=== PATIENT | male | born 1970 | race Caucasian/White ===

== ENCOUNTER → 2018-06-06 10:12 | Outpatient (CLI) | payer BC, SELFPAY ==
--- NOTE | 2018-06-06 10:41 | CA_ITS ---
PROCEDURE: 2-D M-mode and color Doppler study INDICATIONS FOR THE TEST: Chest pain COPD Heart MurmurX Tobacco Smoking Palpitations Fatigue Syncope EdemaX HypertensionXDiabetes Mellitus Rheumatic Fever SOB ERAZO ObesityXHyperlipidemia Family History HD Additional History PATIENT INFORMATION HEIGHT:66 WEIGHT:250 GENDER: Male B/P:120/89 2-D/M-MODE INTERPRETATION: 2-D MEASUREMENTS OBSERVED VALUES IN CMS Right Ventricular Dimension (RVDd) 3.2 Interventricular Septum (Thickness)(IVsd) 1.2 Left Ventricular Internal Dimensions(LVIDd) 5.0 Left Ventricular Posterior Wall (Thickness)(LVPWd) 1.1 Aortic Root 4.0 Aortic Cusp Separation 2.1 Left Atrial Dimensions (LAD) 2.6 2D 1. Left atrium is qualitatively mildly enlarged, left ventricle is normal size, mild concentric left ventricular hypertrophy, visually estimated ejection fraction 55% with no obvious regional wall motion abnormality. 2. The right atrium and right ventricle are normal size and contractility. 3. The aortic valve is thickened and calcified leaflet continue to display mobility. 4. The mitral and tricuspid valve are grossly normal. 5. The pulmonic valve is poorly visualized. 6. No significant pericardial effusion noted. DOPPLER INTERROGATION: Doppler interrogation of the aortic, mitral and tricuspid valvular presence of trace aortic, mild mitral and tricuspid regurgitation, tricuspid and jet velocity is insufficient for calculation of the right ventricular systolic pressure, diastolic parameters are inconclusive. CONCLUSION: 1. Mildly enlarged left atrium, normal left ventricular size, mild concentric left ventricular hypertrophy, visually estimated ejection fraction 55% with no obvious regional wall motion abnormality, diastolic parameters are inconclusive. 2. Mild mitral and tricuspid regurgitation 3. No significant pericardial effusion noted.
== END ==
PROVIDERS: Family Provider Family Medicine; PCP Family Medicine; Visit Provider Family Medicine
DX: R01.2 Other cardiac sounds (principal); R60.0 Localized edema
CPT/HCPCS: 93306

== ENCOUNTER 2018-11-03 20:07 | Observation (INO) ==
[2018-11-03 20:28] LABS: Basophils % 0.3 % (0.1-2.0); Eosinophils # 0.4 K/mm3 (0.0-0.4); Hematocrit 49.2 % (42.0-52.0); Hemoglobin 16.4 g/dL (14.1-18.0); Lymphocytes % 7.3 % (10-50); Mean Corpuscular HGB Conc 33.3 g/dL (31.8-35.4); Mean Corpuscular Hemoglobin 29.7 pg (27.0-31.2); Mean Corpuscular Volume 89.3 fl (80-94); Mean Platelet Volume 7.7 fl (7.4-10.4); Monocytes # 0.5 K/mm3 (0.1-1.0); Monocytes % 3.8 % (1.7-9.3); Neutrophils # 11.7 K/mm3 (1.8-7.8); Neutrophils % 85.6 % (37.0-80.0); Platelet Count 214 K/mm3 (142-424); Red Blood Count 5.51 M/mm3 (4.60-6.20); Red Cell Distribution Width 13.9 % (11.5-17.5); White Blood Count 13.6 K/mm3 (4.8-10.8)
--- NOTE | 2018-11-03 20:33 | Emergency Department Note ---
ED Disposition Clinical Impression: Syncope Qualifiers: Syncope type: unspecified Qualified Code(s): R55 - Syncope and collapse Disposition: Admitted as Observation Condition on Discharge: Good - Critical Care Critical Care Time: No Attestation: On , the high probability of a clinically significant, sudden or life threatening deterioration of the following system(s) required my full and direct attention, intervention and personal management. The time I documented below is in addition to time spent performing reported procedures but includes the following listed in this critical care notation. Medical Decision Making - Medical Records Medical records reviewed: Yes: I reviewed the patient's medical records. - Chadd Inquiry Pt receiving controlled substance: No Vital Signs: 11/03/18 20:08 11/03/18 20:57 11/03/18 21:38 Temperature 98.7 F 99.6 F Temperature Source Oral Oral Pulse Rate [Right Brachial] 85 87 89 Respiratory Rate 17 16 15 Blood Pressure [Right Arm] 133/67 150/94 H 156/71 H Blood Pressure Mean [Right Arm] 89 112 99 Blood Pressure Source [Right Arm] Automatic Cuff Blood Pressure Position [Right Arm] Supine 02 Sat by Pulse Oximetry 96 97 100 Oxygen Delivery Method Room Air 11/03/18 22:30 11/03/18 22:46 Temperature 98.9 F Temperature Source Oral Pulse Rate [Right Brachial] 98 H 104 H Respiratory Rate 18 15 Blood Pressure [Right Arm] 126/75 130/96 H Blood Pressure Mean [Right Arm] 92 107 Blood Pressure Source [Right Arm] Automatic Cuff Blood Pressure Position [Right Arm] Supine 02 Sat by Pulse Oximetry 97 97 Oxygen Delivery Method Room Air Room Air - Lab Data Lab results reviewed: Yes: I reviewed the patient's lab results. Lab Results 11/03/18 20:19: WBC 13.6 H, RBC 5.51, Hgb 16.4, Hct 49.2, MCV 89.3, MCH 29.7, MCHC 33.3, RDW 13.9, Plt Count 214, MPV 7.7, Neut % (Auto) 85.6 H, Lymph % (Auto) 7.3 L, [place] % (Auto) 3.8, Eos % (Auto) 3.0, Baso % (Auto) 0.3, Neut # (Auto) 11.7 H, Lymph # (Auto) 1.0, [place] # (Auto) 0.5, Eos # (Auto) 0.4, Baso # (Auto) 0.0, Total Counted 100, Neutrophils % (Manual) 82 H, Band Neutrophils % 1.0, Lymphocytes % (Manual) 7 L, Monocytes % (Manual) 7, Eosinophils % (Manual) 2, Basophils % (Manual) 1.0, Platelet Estimate Normal, RBC Morphology Normal 11/03/18 20:19: Sodium 137, Potassium 3.8, Chloride 102, Carbon Dioxide 25, Anion Gap 13.8, BUN 16, Creatinine 0.98, Estimated Creat Clear 143, Estimated GFR 81, Est GFR ( Amer) 98, Glucose 160 H, Calcium 8.2 L, Troponin I < 0.02, TSH 1.28, Thyroxine (T4) 7.6 11/03/18 20:19: Influenza Type A Ag Negative, Influenza Type B Ag Negative 11/03/18 21:45: Lactate 1.1 11/03/18 22:00: Urine Color Yellow, Urine Appearance Clear, Urine pH 6.0, Ur Specific [place] 1.020, Urine Protein 1+, Urine Glucose (UA) Negative, Urine K etones Negative, Urine Blood Negative, Urine Nitrate Negative, Urine Bilirubin Negative, Urine Urobilinogen 0.2, Ur Leukocyte Esterase Negative, Urine WBC 3-5, Ur Squamous Epith Cells Occasional, Urine Bacteria Trace Result diagrams: 11/03/18 20:19 11/03/18 20:19 Orders (Tests/Meds): ED MEDICATIONS Generic Name Dose Route Start Last Admin Trade Name Freq PRN Reason Stop Dose Admin Sodium Chloride 1,000 mls @ 999 mls/hr 11/03/18 20:15 11/03/18 20:56 Sod Chlor 0.9% 1000ml Bag IV 11/03/18 21:15 999 mls/hr .Q1H1M OJ Administration Sodium Chloride 1,000 mls @ 999 mls/hr 11/03/18 22:00 11/03/18 21:52 Sod Chlor 0.9% 1000ml Bag IV 11/03/18 23:00 999 mls/hr .Q1H1M OJ Administration Sodium Chloride 10 ml 11/03/18 20:09 Saline Flush 10ml Syringe IV 12/03/18 20:08 NEEDED PRN Maintain IV Site Discontinued Medications Generic Name Dose Route Start Last Admin Trade Name Freq PRN Reason Stop Dose Admin Acetaminophen 1,000 mg 11/03/18 21:49 11/03/18 21:51 Tylenol 500mg Tablet PO 11/03/18 21:50 1,000 mg ONCE ONE Administration Ketorolac Tromethamine 30 mg 11/03/18 21:49 11/03/18 21:51 Toradol 30mg/Ml Vial IV 11/03/18 21:50 30 mg ONCE ONE Administration Ondansetron HCl 4 mg 11/03/18 20:09 11/03/18 21:51 Zofran 4mg/2ml Vial IV 11/03/18 20:10 Not Given ONCE ONE ORDERS Category Date Time Status CT cervical spine wo con Stat Cat Scan 11/03/18 20:[address] head/brain wo con Stat Cat Scan 11/03/18 20:09 Taken XR chest AP Stat Exams 11/03/18 20:09 Taken XR pelvis 1-2V Stat Exams 11/03/18 20:09 Taken UA [Urinalysis and Microscopic] Stat Lab 11/03/18 22:00 Ordered Blood Culture Stat Micro 11/03/18 21:45 Received ECG Request by /Jerry Stat Y 11/03/18 20:09 Ordered - Radiology Data #1 Image(s): Chest, Pelvis Image Reviewed: Yes I reviewed the patient's radiology image Preliminary Findings: No Fracture Seen - CT Data CT Scan: Head, C-Spine Time Received: 22:[address] Reviewed: Yes: I have viewed the radiologist's interpretation Preliminary Findings: No Fracture Seen - ECG Data Tracing #1 Normal Sinus Rhythm: Yes Ischemic changes: non-specific ST-T wave changes - Physician Consults Physician Consulted: sound Reason -: Admission Syncope HPI - General Chief Complaint: Syncope Stated Complaint: nausea, vomiting, passed out x2 Time Seen by Provider: 11/03/18 20:15 Mode of Arrival: EMS Source of Information: Patient, EMS, Medical Record Limitations: No Limitations Description of Symptoms (Recalled from ER Triage Doc. by RN): Reports he felt nauseated at home, got up to go vomit, had a sharp pain in the lower abd, and the next thing he knew, he was getting up off the floor. Denies pain anywhere b ut does state he thinks he hit his head. EMS reported that patient had 2 syncopal episodes earlier today that they responded to in which he did pass out. - History of Present Illness HPI narrative: pt with 2 episodes of passing out tonight - he had no evid of chest pain and no palpitations MD complaint: loss of consciousness Onset (ago): hour(s) Prodromal symptoms: none Witnessed: yes - by bystander Context: at rest Treatments prior to arrival: none - Related Data Home Medications Medication Instructions Recorded Confirmed Amlodipine/Valsartan/Hcthiazid 1 each PO DAILY 09/14/18 11/03/18 [Gsdjm-Bwbct-Rkmg 5-160-12.5 mg] Metformin HCl [Glucophage Xr] 500 mg PO DAILY 09/14/18 11/03/18 Meclizine HCl [Meclizine 25mg Tab] 25 mg PO TID 11/03/18 11/03/18 Allergies Allergy/AdvReac Type Severity Reaction Status Date / Time No Known Allergies Allergy Verified 09/14/18 12:09 [facility] History - Hepatitis A Screen Drug use history?: No High risk sexual behaviors?: No History of sexually transmitted infection?: No Currently employed?: No Childcare worker?: No Do you have indoor plumbing?: Yes Do you have electricity?: Yes Attestation statement:: This patient has been screened for Hepatitis A risk factors. I have reviewed the patient's past medical history: Yes Medical History: Reports:: Diabetes Mellitus Type 1 Denies:: Cancer, Diabetes Mellitus Type 2, MRSA Amputation: No - Social History Alcohol Intake: never - Psychiatric History Expresses thoughts of harming self/others: None Suicide Plan Description: No Plan ROS Obtained: Yes All systems reviewed & no additional complaints - Constitutional Constitutional: Reports chills, Denies fever(s) - Eyes Eyes: Denies change in vision - ENT Ears, Nose, Mouth, and Throat: Denies sore throat - Cardiovascular Cardiovascular: Denies chest pain, Denies dyspnea, Denies palpitations - Respiratory Respiratory: No cough - Gastrointestinal Gastrointestingal: Denies: abdominal pain, diarrhea - Genitourinary Male Genitourinary: Denies flank pain, Denies hematuria - Musculoskeletal Musculoskeletal: Denies joint pain, Denies joint swelling - Integumentary/Breasts Skin/Breast: Denies rash - Neurologic Neurologic: Denies abnormal speech, Denies confusion, Denies headache(s), Denies seizure-like activity, Reports syncope Physical Exam - General General appearance: alert, in no apparent distress - Head Head exam: atraumatic, normocephalic - Eye Eye exam: Present: PERRL, EOMI. Absent: nystagmus - ENT ENT exam: Present: mucous membranes dry, other (no evid of tongue biting ) - Neck Neck exam: Present: trachea midline, other (no bruit) - Respiratory Respiratory exam: Present: normal lung sounds bilaterally. Absent: respiratory distress - Cardiovascular Cardiovascular exam: Present: regular rate, systolic murmur - Abdominal Exam Abdominal exam: Present: soft - Extremities Exam Extremities exam: Present: normal inspection - Neurological Exam Neurological exam: Present: alert, oriented X3, CN II-XII intact. Absent: motor sensory deficit - Psychiatric Psychiatric exam: Present: normal affect - Skin Skin exam: Absent: rash
[2018-11-03 20:47] LABS: Anion Gap 13.8 mEq/L (5-15); Blood Urea Nitrogen 16 mg/dL (7-18); Calcium 8.2 mg/dL (8.5-10.1); Carbon Dioxide 25 mmol/L (21.0-32.0); Chloride 102 mmol/L (98-107); Glucose 160 mg/dL (74-106); Potassium 3.8 mmoL/L (3.5-5.1); Sodium 137 mmol/L (136-145); T4 (Thyroxine) 7.6 ug/dl (4.7-13.3); Thyroid Stimulating Hormone 1.28 uIU/ml (0.358-3.740)
[2018-11-03 21:01] LABS: Eosinophils % 2 % (0-3); Lymphocytes % 7 % (10-50); Monocytes % 7 % (2-9); Neutrophils % 82 % (42-76); RBC Morphology Normal; Total Cells Counted 100
[2018-11-03 22:05] LABS: Microscopic, Urine URINE MICROSCOPIC (MICROSCOPIC)
[2018-11-03 22:06] LABS: Appearance,Urine CLEAR (Clear); Bilirubin,Urine Negative (Negative); Blood, Urine Negative (Negative); Color,Urine YELLOW (Yellow); Glucose,Urine (UA) Negative (Negative); Ketones,Urine Negative (Negative); Leukocyte Esterase,Urine Negative (Negative); Protein,Urine 1+ (Negative); Urobilinogen,Urine 0.2 EU/dl (0.2)
[2018-11-03 22:13] LABS: Bacteria,Urine Trace /lpf; Squamous Epithelial Cell,Urine Occasional #/hpf (0-5)
[2018-11-04 06:03] LABS: Basophils % 0.1 % (0.1-2.0); Eosinophils # 0.4 K/mm3 (0.0-0.4); Eosinophils % 3.8 % (0.1-12.0); Hematocrit 46.4 % (42.0-52.0); Lymphocytes # 1.1 K/mm3 (0.7-4.5); Lymphocytes % 12.2 % (10-50); Mean Corpuscular HGB Conc 31.5 g/dL (31.8-35.4); Mean Corpuscular Hemoglobin 28.5 pg (27.0-31.2); Mean Corpuscular Volume 90.3 fl (80-94); Mean Platelet Volume 7.8 fl (7.4-10.4); Monocytes # 0.5 K/mm3 (0.1-1.0); Monocytes % 4.9 % (1.7-9.3); Neutrophils # 7.3 K/mm3 (1.8-7.8); Platelet Count 195 K/mm3 (142-424); Red Blood Count 5.13 M/mm3 (4.60-6.20); Red Cell Distribution Width 13.9 % (11.5-17.5); White Blood Count 9.2 K/mm3 (4.8-10.8)
[2018-11-04 06:15] LABS: Hemoglobin 14.9 g/dL (14.1-18.0)
[2018-11-04 06:36] LABS: Calcium 7.4 mg/dL (8.5-10.1)
--- NOTE | 2018-11-04 07:35 | Pharmacy Consult Notes ---
[facility] Pharmacy VTE Monitoring - Patient Demographics Admission date: 11/03/18 Report Date: 11/04/18 Time: 07:35 Allergies/Adverse Reactions: Patient Allergies No Known Allergies Allergy (Verified 09/14/18 12:09) Height: 1.68 m Weight: 115.383 kg Patient Problems: Current Active Problems Syncope (Acute) - VTE Risk Labs: VTE Related Lab Results Hgb 14.9 g/dL (14.1-18.0) 11/04/18 05:30 Hct 46.4 % (42.0-52.0) 11/04/18 05:30 Plt Count 195 K/mm3 (142-424) 11/04/18 05:30 BUN 15 mg/dL (7-18) 11/04/18 05:30 Creatinine 0.95 mg/dL (0.70-1.30) 11/04/18 05:30 Estimated Creat Clear 154 mL/min (50-200) 11/04/18 05:30 Was VTE Risk Assessment Performed: Yes VTE Risk Level: Very Low Risk - Prophylaxis VTE Prophylaxis Ordered?: Yes Types of VTE Prophylaxis: TEDS Knee High Location of Applied Device: Bilateral Lower Extremeties - VTE Diagnosis Confirmed Treatment or plan recommended: Continue Current Treatment
--- NOTE | 2018-11-04 09:25 | History & Physical Report ---
*Admission Date: 11/03/18 <FordKelsi 11/04/18 09:45> *Chief complaint: Syncope <FordKelsi arboleda 11/04/18 09:45> *History of present illness: Mr. Norman is a 47-year-old male with a history of type 2 diabetes mellitus and hypertension who presented to [facility] via EMS after experiencing syncopal episodes x2. The first episode occurred after getting up from a sitting position and walking to the bathroom because he felt he might vomit. He fell to the floor hitting his arm. After vomiting he did feel better. He did continue with his work and again when sitting became dizzy and nauseated. This time he was lowered to the floor. He did not feel like he passed out. EMS was again called and he was brought to the emergency room. He denies having chest pain, shortness of breath, and palpitations. With evaluation in the emergency room he had negative imaging which included CT of head and cervical spine, chest x-ray and pelvis x-ray. He did receive IV fluid boluses, Toradol and Zofran IV. White blood cell count was elevated at 13,600; normal TSH at 1.28; troponin I's were negative x3. He was admitted for observation, cardiac monitoring and further evaluation and treatment <LoganKelsi 11/04/18 09:45> [facility] History Medical History: Reports:: Diabetes Mellitus Type 2, Hypertension Denies:: Atherosclerotic Heart Disease, Cancer, MRSA <Kelsi Ford 09:45> Have you ever received a pneumonia vaccine?: No <Kelsi Ford 11/04/18 09:45> Have you received a flu vaccine this season?: No <Kelsi Ford 11/04/18 09:45> Other Medical History: Denies: Hypothyroidism <Kelsi Ford 11/04/18 09:45> Other Surgeries: Yes: Cholecystectomy, Hernia Repair <Kelsi Ford 11/04/18 09:45> Amputation: No <Kelsi Ford 11/04/18 09:45> - *Social History Educational Level: Completed High School <Kelsi Ford 11/04/18 09:45> Smoking Status: Never smoker <Kelsi Ford 11/04/18 09:45> Alcohol Intake: never <Kelsi Ford 11/04/18 09:45> Occupational Status: employed <Kelsi Ford 11/04/18 09:45> Housing: house <Kelsi Ford 11/04/18 09:45> Travel in the last 8 weeks: None <Kelsi Ford 11/04/18 09:45> - Psychiatric History Expresses thoughts of harming self/others: None <Kelsi Ford 11/04/18 09:45> Suicide Plan Description: No Plan <Kelsi Ford 11/04/18 09:45> *Family Hx:: Coronary Artery Disease, Heart Attack <Kelsi Ford 11/04/18 09:45> Review of Systems - Constitutional Reports headache(s), Denies body ache(s), Denies weakness <LoganKelsi 11/04/18 09:45> - Eyes Denies change in vision <LoganKelsi 11/04/18 09:45> - ENT Denies ear pain, Denies sore throat <Kelsi Ford 11/04/18 09:45> - *Cardiovascular Denies chest pain, Denies shortness of breath, Denies irregular heart rhythm, Denies fast heart rate <Kelsi Ford 11/04/18 09:45> - *Respiratory Denies chest congestion, Denies cough, Denies shortness of breath, Denies coughing up blood <Kelsi Ford 11/04/18 09:45> - *Gastrointestinal Reports nausea, Reports vomiting, Denies abdominal pain, Denies change in stools, Denies constipation, Denies heartburn, Denies vomiting blood <Kelsi Ford 11/04/18 09:45> Comments: Also vomited after arrival to the emergency room <Kelsi Ford 11/04/18 09:45> - *Genitourinary Denies difficulty urinating <LoganKelsi 11/04/18 09:45> - *Musculoskeletal Denies abnormal walking, Denies muscle weakness, Denies body aches <Kelsi Ford 11/04/18 09:45> - *Neurologic Reports dizziness, Reports fainting, Reports dizziness, Denies abnormal walking, Denies abnormal speech, Denies confusion, Denies localized weakness, Denies headache(s), Denies lack of coordination, Denies seizure-like activity, Denies weakness <Kelsi Ford - 11/04/18 09:45> Meds Home Medications Medication Instructions Recorded Confirmed Type RX: Amlodipine/Valsartan/Hcthiazid 1 each PO DAILY 09/14/18 11/04/18 History [Ufbwj-Ceahd-Wutd 5-160-12.5 mg] RX: Meclizine HCl [Meclizine 25mg 25 mg PO TID 11/03/18 11/03/18 History Tab] Aspirin [Aspirin 81mg EC Tab] 81 mg PO DAILY #30 tablet. 11/04/18 Rx RX: Metformin HCl 500 mg PO DAILY 11/04/18 11/04/18 History <Igor Ramirez - 11/20/18 18:08> Allergies Allergy/AdvReac Type Severity Reaction Status Date / Time No Known Allergies Allergy Verified 09/14/18 12:09 <Igor Ramirez - 11/20/18 18:08> Exam Vital signs and Labs for Last 24 Hours: Temp Pulse Resp BP Pulse Ox 98.1 F 94 H 20 135/89 95 11/04/18 11:58 11/04/18 11:58 11/04/18 11:58 11/04/18 11:58 11/04/18 11:58 <Igor Ramirez - 11/20/18 18:08> Temp Pulse Resp BP Pulse Ox 98.1 F 71 16 135/74 96 11/04/18 08:00 11/04/18 08:00 11/04/18 08:00 11/04/18 08:00 11/04/18 08:00 Laboratory Results - last 24 hr 11/03/18 20:19: WBC 13.6 H, RBC 5.51, Hgb 16.4, Hct 49.2, MCV 89.3, MCH 29.7, MCHC 33.3, RDW 13.9, Plt Count 214, MPV 7.7, Neut % (Auto) 85.6 H, Lymph % (Auto) 7.3 L, [place] % (Auto) 3.8, Eos % (Auto) 3.0, Baso % (Auto) 0.3, Neut # (Auto) 11.7 H, Lymph # (Auto) 1.0, [place] # (Auto) 0.5, Eos # (Auto) 0.4, Baso # (Auto) 0.0, Total Counted 100, Neutrophils % (Manual) 82 H, Band Neutrophils % 1.0, Lymphocytes % (Manual) 7 L, Monocytes % (Manual) 7, Eosinophils % (Manual) 2, Basophils % (Manual) 1.0, Platelet Estimate Normal, RBC Morphology Normal 11/03/18 20:19: Sodium 137, Potassium 3.8, Chloride 102, Carbon Dioxide 25, Anion Gap 13.8, BUN 16, Creatinine 0.98, Estimated Creat Clear 143, Estimated GFR 81, Est GFR ( Amer) 98, Glucose 160 H, Calcium 8.2 L, Troponin I < 0.02, TSH 1.28, Thyroxine (T4) 7.6 11/03/18 20:19: Influenza Type A Ag Negative, Influenza Type B Ag Negative 11/03/18 21:45: Lactate 1.1 11/03/18 22:00: Urine Color Yellow, Urine Appearance Clear, Urine pH 6.0, Ur Specific [place] 1.020, Urine Protein 1+, Urine Glucose (UA) Negative, Urine Ketones Negative, Urine Blood Negative, Urine Nitrate Negative, Urine Bilirubin Negative, Urine Urobilinogen 0.2, Ur Leukocyte Esterase Negative, Urine WBC 3-5, Ur Squamous Epith Cells Occasional, Urine Bacteria Trace 11/04/18 02:00: Troponin I < 0.02 11/04/18 05:30: Troponin I < 0.02 11/04/18 05:30: WBC 9.2 D, RBC 5.13, Hgb 14.9, Hct 46.4, MCV 90.3, MCH 28.5, MC HC 31.5 L, RDW 13.9, Plt Count 195, MPV 7.8, Neut % (Auto) 79.0, Lymph % (Auto) 12.2, [place] % (Auto) 4.9, Eos % (Auto) 3.8, Baso % (Auto) 0.1, Neut # (Auto) 7.3, Lymph # (Auto) 1.1, [place] # (Auto) 0.5, Eos # (Auto) 0.4, Baso # (Auto) 0.0 11/04/18 05:30: Sodium 139, Potassium 4.0, Chloride 106, Carbon Dioxide 24, Anion Gap 13.0, BUN 15, Creatinine 0.95, Estimated Creat Clear 154, Estimated GFR 84, Est GFR ( Amer) 102, Glucose 144 H, Calcium 7.4 L 11/04/18 06:20: POC Glucose 137 H <LoganKelsi 11/04/18 09:45> I & O for Last 24 hours: Intake & Output 11/01/18 11/02/18 11/03/18 11/04/18 11:59 11:59 11:59 11:59 Intake Total 2503 / 2503 Output Total 75 / 75 Balance 2428 / 2428 Weight 254 lb 6 oz <LoganKelsi 11/04/18 09:45> Radiology Reports for the Last 24 Hours: 11/03/2018 CT of the cervical spine IMPRESSION: 1. No acute fracture. 2. Cervical spondylosis with degenerative disc disease. Please see above for detailed description 3. C3-C4: Mild degenerative disc disease with right paracentral disc osteophyte complex and mild right lateral recess and foraminal narrowing. 4. C5-C6: Degenerative disc disease with prominent central and left paracentral disc osteophyte complex with left lateral recess and foraminal narrowing and canal stenosis centrally and on the left. 11/03/2018 chest x-ray IMPRESSION: Negative chest, no acute finding 11/03/2018 CT of the head IMPRESSION: Negative CT head without contrast. No acute finding 11/03/2018 x-ray of the pelvis IMPRESSION: No acute finding <Kelsi Ford 11/04/18 09:45> - Constitutional no acute distress <Kelsi Ford 11/04/18 09:45> Comments: Has just ambulated to the bathroom without difficulties <Kelsi Ford 11/04/18 09:45> - *Routine HEENT Exam Head: Present: normocephalic, atraumatic <Kelsi Ford 11/04/18 09:45> Eye: Present: EOMI, PERRL. Absent: conjunctival icterus, scleral injection <Kelsi Sr 11/04/18 09:45> ENT: Present: mucous membranes moist, oropharynx clear <Kelsi Ford 11/04/18 09:45> - *Routine Neck Exam Present: supple, full ROM. Absent: carotid bruit, lymphadenopathy, thyromegaly <Kelsi Ford 11/04/18 09:45> - *Routine Respiratory Exam Present: CTA bilaterally (Anteriorly and posteriorly) <Kelsi Ford 11/04/18 09:45> - *Routine Cardiovascular Exam Present: RRR (Without ectopy) <[facility]andi [facility]formerly [facility] 11/04/18 09:45> - *Routine Abdominal Exam Present: soft, normoactive bowel sounds. Absent: tenderness, distended, gu arding <Randi Fordhy 11/04/18 09:45> Comments: Obese <Randi Fordhy 11/04/18 09:45> - *Routine Extremities Exam Present: pulses intact. Absent: edema, calf tenderness <Randi Fordhy 11/04/18 09:45> - *Routine Neurological Exam Present: alert, oriented X3 <Randi Fordhy 11/04/18 09:45> Assessment and Plan (1) Vertigo Status: Acute Category: Medical Code(s): R42 - Dizziness and giddiness (2) Syncope Status: Acute Qualifiers: Syncope type: unspecified Qualified Code(s): R55 - Syncope and collapse Category: Medical Code(s): R55 - Syncope and collapse (3) Type 2 diabetes mellitus Status: Chronic Category: Medical Code(s): E11.9 - Type 2 diabetes mellitus without complications (4) Dizziness Status: Acute Category: Medical Code(s): R42 - Dizziness and giddiness (5) Hypertension Status: Chronic Category: Medical Code(s): I10 - Essential (primary) hypertension (6) Hyperglycemia Status: Acute Category: Medical Code(s): R73.9 - Hyperglycemia, unspecified <Igor Ramirez 11/20/18 18:08> (1) Vertigo Status: Acute Category: Medical Code(s): R42 - Dizziness and giddiness (2) Syncope Status: Acute Qualifiers: Syncope type: unspecified Qualified Code(s): R55 - Syncope and collapse Category: Medical Code(s): R55 - Syncope and collapse (3) Type 2 diabetes mellitus Status: Chronic Category: Medical Code(s): E11.9 - Type 2 diabetes mellitus without complications (4) Dizziness Status: Acute Category: Medical Code(s): R42 - Dizziness and giddiness (5) Hypertension Status: Chronic Category: Medical Code(s): I10 - Essential (primary) hypertension (6) Hyperglycemia Status: Acute Category: Medical Code(s): R73.9 - Hyperglycemia, unspecified <Kelsi Ford - 11/04/18 09:21> - Assessment and plan all Dx Assessment and Plan for all problems:: Patient seen and examined. Concur with above assessment and plan. <Igor Ramirez - 11/20/18 18:08> Carotid ultrasound and echocardiogram. Will restart metformin. Patient has had minimal p.o. intake and will continue IV fluids at 75 an hour for now. Unable to determine urinary output if any. <Kelsi Ford - 11/04/18 09:45>
--- NOTE | 2018-11-04 11:19 | Carotid Imaging Report ---
"Cerebrovascular Exam Indications: 780.2 Syncope and collapse. IMPRESSIONS 1. The bilateral vertebral arteries are patent with normal antegrade flow. 2. Study suggests less than 20% stenosis involving the right internal carotid artery and the left internal carotid artery. Carotid duplex study. Complete study and Doppler flow study including spectral analysis, color and stratton scale imaging. Height: Height: 15.2cm. Height: 6in. Weight: Weight: 115.2kg. Weight: 253.5lb. Body mass index: BMI: 4960.6kg/m^2. Body surface area: BSA: 0.92m^2. Location: Vascular laboratory. Patient status: Inpatient. Tables: Arterial flow: + +--------+--------+ |Location |V sys |V ed | + +--------+--------+ |Right CCA - proximal|68.4cm/s|18.2cm/s| + +--------+--------+ |Right CCA - distal |59cm/s |20.4cm/s| + +--------+--------+ |Right ECA |115cm/s |--------| + +--------+--------+ |Right ICA - proximal|98.2cm/s|35.8cm/s| + +--------+--------+ |Right ICA - mid |75cm/s |38cm/s | + +--------+--------+ |Right ICA - distal |92.6cm/s|39.2cm/s| + +--------+--------+ |Right vertebral |42.4cm/s|--------| + +--------+--------+ |Left CCA - proximal |87.7cm/s|24.3cm/s| + +--------+--------+ |Left CCA - distal |99.8cm/s|29.2cm/s| + +--------+--------+ |Left ECA |132cm/s |--------| + +--------+--------+ |Left ICA - proximal |73.3cm/s|27cm/s | + +--------+--------+ |Left ICA - mid |93.7cm/s|38.6cm/s| + +--------+--------+ |Left ICA - distal |68.7cm/s|32.9cm/s| + +--------+--------+ |Left vertebral |42.5cm/s|--------| + +--------+--------+ Velocity ratios: + + + + + + | |Right, V sys|Right, V ed|Left, V sys|Left, V ed| + + + + + + |Max ICA/dist CCA|1.66 |1.92 |0.94 |1.32 | + + + + + + (Report amended ) Electronically signed by: Ishaan Braun [id number]"
--- NOTE | 2018-11-04 18:28 | Progress Note ---
Internal Medicine - PN: Subj *Date: 11/04/18 *Time: 18:26 Interval history: Patient up and about in room today with no dizziness, ataxia, pre-syncope symptoms. VS stable. Carotid doppler and echo show no actionable concerns. He requested discharge due to availability of a ride. Will discharge home with Holter and f/u in office in 2 days. Exam Vital signs and Labs for Last 24 Hours: Temp Pulse Resp BP Pulse Ox 98.1 F 94 H 20 135/89 95 11/04/18 11:58 11/04/18 11:58 11/04/18 11:58 11/04/18 11:58 11/04/18 11:58 Laboratory Results - last 24 hr 11/03/18 20:19: WBC 13.6 H, RBC 5.51, Hgb 16.4, Hct 49.2, MCV 89.3, MCH 29.7, MCHC 33.3, RDW 13.9, Plt Count 214, MPV 7.7, Neut % (Auto) 85.6 H, Lymph % (Auto) 7.3 L, Braxton % (Auto) 3.8, Eos % (Auto) 3.0, Baso % (Auto) 0.3, Neut # (Auto) 11.7 H, Lymph # (Auto) 1.0, Braxton # (Auto) 0.5, Eos # (Auto) 0.4, Baso # (Auto) 0.0, Total Counted 100, Neutrophils % (Manual) 82 H, Band Neutrophils % 1.0, Lymphocytes % (Manual) 7 L, Monocytes % (Manual) 7, Eosinophils % (Manual) 2, Basophils % (Manual) 1.0, Platelet Estimate Normal, RBC Morphology Normal 11/03/18 20:19: Sodium 137, Potassium 3.8, Chloride 102, Carbon Dioxide 25, Anion Gap 13.8, BUN 16, Creatinine 0.98, Estimated Creat Clear 143, Estimated GFR 81, Est GFR ( Amer) 98, Glucose 160 H, Calcium 8.2 L, Troponin I < 0.02, TSH 1.28, Thyroxine (T4) 7.6 11/03/18 20:19: Influenza Type A Ag Negative, Influenza Type B Ag Negative 11/03/18 21:45: Lactate 1.1 11/03/18 22:00: Urine Color Yellow, Urine Appearance Clear, Urine pH 6.0, Ur Specific Ocate 1.020, Urine Protein 1+, Urine Glucose (UA) Negative, Urine Ketones Negative, Urine Blood Negative, Urine Nitrate Negative, Urine Bilirubin Negative, Urine Urobilinogen 0.2, Ur Leukocyte Esterase Negative, Urine WBC 3-5, Ur Squamous Epith Cells Occasional, Urine Bacteria Trace 11/04/18 02:00: Troponin I < 0.02 11/04/18 05:30: Troponin I < 0.02 11/04/18 05:30: WBC 9.2 D, RBC 5.13, Hgb 14.9, Hct 46.4, MCV 90.3, MCH 28.5, MCHC 31.5 L, RDW 13.9, Plt Count 195, MPV 7.8, Neut % (Auto) 79.0, Lymph % (Auto) 12.2, Braxton % (Auto) 4.9, Eos % (Auto) 3.8, Baso % (Auto) 0.1, Neut # (Auto) 7.3, Lymph # (Auto) 1.1, Braxton # (Auto) 0.5, Eos # (Auto) 0.4, Baso # (Auto) 0.0 11/04/18 05:30: Sodium 139, Potassium 4.0, Chloride 106, Carbon Dioxide 24, Anion Gap 13.0, BUN 15, Creatinine 0.95, Estimated Creat Clear 154, Estimated GFR 84, Est GFR ( Amer) 102, Glucose 144 H, Calcium 7.4 L 11/04/18 06:20: POC Glucose 137 H 11/04/18 12:04: POC Glucose 143 H I & O for Last 24 hours: Intake & Output 11/02/18 11/03/18 11/04/18 11/05/18 11:59 11:59 11:59 11:59 Intake Total 2503 / 2503 Output Total 75 / 75 Balance 2428 / 2428 Weight 254 lb 6 oz Assessment and Plan (1) Vertigo Status: Acute Category: Medical Code(s): R42 - Dizziness and giddiness (2) Syncope Status: Acute Qualifiers: Syncope type: unspecified Qualified Code(s): R55 - Syncope and collapse Category: Medical Code(s): R55 - Syncope and collapse (3) Type 2 diabetes mellitus Status: Chronic Category: Medical Code(s): E11.9 - Type 2 diabetes mellitus without complications (4) Dizziness Status: Acute Category: Medical Code(s): R42 - Dizziness and giddiness (5) Hypertension Status: Chronic Category: Medical Code(s): I10 - Essential (primary) hypertension (6) Hyperglycemia Status: Acute Category: Medical Code(s): R73.9 - Hyperglycemia, unspecified
--- NOTE | 2018-11-05 05:43 | Cardiology Report ---
PROCEDURE: 2-D M-mode and color Doppler study INDICATIONS FOR THE TEST: Chest pain COPD Heart Murmur Tobacco Smoking Palpitations Fatigue Syncope Edema Hypertension+Diabetes Mellitus++++++ Rheumatic Fever SOB ERAZO Obesity Hyperlipidemia Family History HD Additional History PATIENT INFORMATION HEIGHT: 66 WEIGHT:254 GENDER: Male B/P:115/60 2-D/M-MODE INTERPRETATION: 2-D MEASUREMENTS OBSERVED VALUES IN CMS Right Ventricular Dimension (RVDd) 3.5 Interventricular Septum (Thickness)(IVsd) 1.4 Left Ventricular Internal Dimensions(LVIDd) 5.6 Left Ventricular Posterior Wall (Thickness)(LVPWd) 1.0 Aortic Root 3.8 Aortic Cusp Separation 2.2 Left Atrial Dimensions (LAD) 3.5 2D 1. Technically difficult study because of the patient's factor and poor acoustic windows 2. Left atrium is mildly enlarged, left ventricle is normal size, mild concentric left ventricular hypertrophy, visually estimated ejection fraction 55% no regional wall motion abnormality 3. The right atrium and right ventricle are mildly enlarged with normal contractility. 4. The aortic valve is minimally thickened and calcified leaflet continue to display good mobility. 5. The mitral and tricuspid valve leaflets are minimally thickened. 6. The pulmonic valve is poorly visualized. 7. No significant pericardial effusion noted. DOPPLER INTERROGATION: Doppler interrogation of the aortic, mitral and tricuspid valvular presence of mild aortic, mild mitral and tricuspid regurgitation, tricuspid regurgitation jet velocity is inadequate for calculation of the right ventricular systolic pressure, grade 1 diastolic dysfunction seen with tissue Doppler evidence of raised left atrial pressure. CONCLUSION: 1. Mildly enlarged left atrium, normal left ventricular size, mild concentric left ventricular hypertrophy, visually estimated ejection fraction 55% with no regional wall motion abnormality, grade 1 diastolic dysfunction seen with tissue Doppler evidence of raised left atrial pressure. 2. Mildly enlarged right ventricle with normal contractility. 3. Mild aortic, mild mitral and tricuspid regurgitation. 4. No significant pericardial effusion noted.
--- NOTE | 2018-11-06 22:00 | Discharge Summary ---
General - General Admission date:: 11/03/18 <Igor Ramirez - 11/20/18 18:09> 11/03/18 <Jody Sue - 11/06/18 22:00> Discharge date: 11/04/18 <Jody Sue - 11/06/18 22:00> HPI HPI: Mr. Trujillo is a 47-year-old male with a history of type 2 diabetes mellitus and hypertension who presented to [facility] via EMS after experiencing syncopal episodes x2. The first episode occurred after getting up from a sitting position and walking to the bathroom because he felt he might vomit. He fell to the floor hitting his arm. After vomiting he did feel mansoor r. He did continue with his work and again when sitting became dizzy and nauseated. This time he was lowered to the floor. He did not feel like he passed out. EMS was again called and he was brought to the emergency room. He denies having chest pain, shortness of breath, and palpitations. With evaluation in the emergency room he had negative imaging which included CT of head and cervical spine, chest x-ray and pelvis x-ray. He did receive IV fluid boluses, Toradol and Zofran IV. White blood cell count was elevated at 13,600; normal TSH at 1.28; troponin I's were negative x3. He was admitted for observation, cardiac monitoring and further evaluation and treatment <Jody Sue - 11/06/18 22:00> Hospital Course Hospital Course: A carotid ultrasound and echocardiogram were ordered. He was restarted on his metformin as well as IV fluids. His carotid ultrasound showed less than 20% stenosis bilaterally. His echo showed an EF of 55% with left ventricular hypertrophy. By the next day, the patient was up and about in the room with no dizziness, ataxia, or pre-syncopal episodes. The patient requested discharge due to availability of a ride. He was stable to be discharged home with a Holter and a follow-up in 2 days. <Jody Sue - 11/06/18 22:00> Objective Vital signs: Temp Pulse Resp BP Pulse Ox 98.1 F 94 H 20 135/89 95 11/04/18 11:58 11/04/18 11:58 11/04/18 11:58 11/04/18 11:58 11/04/18 11:58 <AshleyIgor Rudi - 11/20/18 18:09> Temp Pulse Resp BP Pulse Ox 98.1 F 94 H 20 135/89 95 11/04/18 11:58 11/04/18 11:58 11/04/18 11:58 11/04/18 11:58 11/04/18 11:58 <Jody Sue - 11/06/18 22:00> Narrative: - Constitutional no acute distress Comments: Has just ambulated to the bathroom without difficulties - *Routine HEENT Exam Head: Present: normocephalic, atraumatic Eye: Present: EOMI, PERRL. Absent: conjunctival icterus, scleral injection ENT: Present: mucous membranes moist, oropharynx clear - *Routine Neck Exam Present: supple, full ROM. Absent: carotid bruit, lymphadenopathy, thyromegaly - *Routine Respiratory Exam Present: CTA bilaterally (Anteriorly and posteriorly) - *Routine Cardiovascular Exam Present: RRR (Without ectopy) - *Routine Abdominal Exam Present: soft, normoactive bowel sounds. Absent: tenderness, distended, guarding Comments: Obese - *Routine Extremities Exam Present: pulses intact. Absent: edema, calf tenderness - *Routine Neurological Exam Present: alert, oriented X3 <Jody Sue - 11/06/18 22:00> Results Labs on day of discharge: Preliminary micro results at discharge 11/03/18 21:45 Blood Culture - Preliminary Blood NO GROWTH AFTER 48 HOURS 11/03/18 21:45 Blood Culture - Preliminary Blood NO GROWTH AFTER 48 HOURS <Jody Sue - 11/06/18 22:00> DS: Diagnosis - Discharge Diagnosis (1) Vertigo Status: Acute (2) Syncope Status: Acute (3) Type 2 diabetes mellitus Status: Chronic (4) Dizziness Status: Acute (5) Hypertension Status: Chronic (6) Hyperglycemia Status: Acute <Jody Sue - 11/06/18 21:55> (1) Vertigo Status: Acute (2) Syncope Status: Acute (3) Type 2 diabetes mellitus Status: Chronic (4) Dizziness Status: Acute (5) Hypertension Status: Chronic (6) Hyperglycemia Status: Acute <AshleyIgor Rudi - 11/20/18 18:09> Discharge Plan - Patient Discharge Instructions ACTIVITY: Continue current activity <Jody Sue - 11/06/18 22:00> DIET: diabetic diet, low salt diet <Jody Sue - 11/06/18 22:00> Patient Instructions: DI for Syncope in Adults (Fainting) <Igor Ramirez - 11/20/18 18:09> Forms: <Igor Ramirez - 11/20/18 18:09> - Follow up Plan Follow up with: Igor Ramirez MD [Staff Physician] - 2 days (in [facility]) <Igor Ramirez - 11/20/18 18:09> Disposition: Home, Self-Care <Igor Ramirez - 11/20/18 18:09> Home Medications: Home Medications Medication Instructions Recorded Confirmed Type RX: Amlodipine/Valsartan/Hcthiazid 1 each PO DAILY 09/14/18 11/04/18 History [Ykdzx-Qfgxn-Gufx 5-160-12.5 mg] RX: Meclizine HCl [Meclizine 25mg 25 mg PO TID 11/03/18 11/03/18 History Tab] Aspirin [Aspirin 81mg EC Tab] 81 mg PO DAILY #30 tablet. 11/04/18 Rx RX: Metformin HCl 500 mg PO DAILY 11/04/18 11/04/18 History <Igor Ramirez - 11/20/18 18:09> Prescriptions/Medication Reconciliation: New Aspirin [Aspirin 81mg EC Tab] 81 mg PO DAILY #30 tablet.dr Campo RX: Amlodipine/Valsartan/Hcthiazid [Ajdks-Grzse-Gnmb 5-160-12.5 mg] 1 each PO DAILY RX: Metformin HCl 500 mg PO DAILY RX: Meclizine HCl [Meclizine 25mg Tab] 25 mg PO TID <Igor Ramirez - 11/20/18 18:09> - Additional Information Additional Information: Concur with plan for discharge. <Igor Ramirez - 11/20/18 18:09>
== END 2018-11-04 14:04 | disposition home or self-care (01) ==
LOC: 2ND 20:07 → ER 20:07 → 2ND 23:31
PROVIDERS: ADMIT Emergency Medicine; ATTEND Family Medicine
DX: R42 Dizziness and giddiness; Z79.899 Other long term (current) drug therapy; I65.23 Occlusion and stenosis of bilateral carotid arteries; I51.7 Cardiomegaly; R55 Syncope and collapse; I10 Essential (primary) hypertension; E11.65 Type 2 diabetes mellitus with hyperglycemia
CPT/HCPCS: 36415; 70450; 71010; 71045; 72125; 72170; 80048; 81001; 82962; 83605; 84436; 84443; 84484; 85007; 85025; 87040; 87275; 87276; 93005; 93306; 93880; 96365; 96366; 96375; 99285; G0378; J2405

== ENCOUNTER → 2018-11-04 14:05 | Outpatient (CLI) | payer BC, SELFPAY | PROVIDERS: PCP Family Medicine; Visit Provider Family Medicine | DX: R42 Dizziness and giddiness (principal) ==

== ENCOUNTER 2023-01-07 23:52 | Emergency (ER) | payer BC, SELFPAY ==
[2023-01-07 23:53] VITALS: BP 194/101; PULSE 82; RESP 17; TEMP 37; O2SAT 98; BMI 37.1
[2023-01-08] VITALS (10 sets, daily range): BP systolic 173–210; BP diastolic 91–120; PULSE 75–84; RESP 16–22; TEMP 36.6; O2SAT 96–98
[2023-01-08 00:31] LABS: Basophils # 0.2 K/mm3 (0-0.2); Eosinophils # 0.8 K/mm3 (0.0-0.4); Eosinophils % 6.6 % (0.1-12.0); Hemoglobin 15.7 g/dL (14.1-18.0); Lymphocytes # 3.2 K/mm3 (0.7-4.5); Lymphocytes % 27.8 % (10-50); Mean Corpuscular HGB Conc 32.7 g/dL (31.8-35.4); Mean Corpuscular Hemoglobin 28.4 pg (27.0-31.2); Mean Corpuscular Volume 86.9 fl (80-94); Mean Platelet Volume 8.7 fl (7.4-10.4); Monocytes # 0.6 K/mm3 (0.1-1.0); Monocytes % 4.9 % (1.7-9.3); Neutrophils # 6.8 K/mm3 (1.8-7.8); Neutrophils % 58.7 % (37.0-80.0); Platelet Count 200 K/mm3 (142-424); Red Blood Count 5.52 M/mm3 (4.60-6.20); Red Cell Distribution Width 14.5 % (11.5-17.5); White Blood Count 11.5 K/mm3 (4.8-10.8)
[2023-01-08 00:35] LABS: Chloride 104 mmol/L (98-107); Sodium 138 mmol/L (136-145)
[2023-01-08 00:36] LABS: Potassium 3.7 mmoL/L (3.5-5.1)
--- NOTE | 2023-01-08 00:37 | HMH.EDEPIS ---
Discharge Plan Disposition Patient Disposition: Home, Self-Care Chief Complaint: Epistaxis Prescriptions Prescriptions: No Action tessyvtcqf-arpszawui-hlwexabpp 5-160-12.5 mg tablet 1 tab PO DAILY Qty: 90 0RF atorvastatin 20 mg tablet 20 mg PO DAILY Qty: 30 0RF metformin 1,000 mg tablet 1,000 mg PO DAILY Qty: 30 0RF meclizine 25 MG Tab.Chew 25 mg PO TID aspirin 81 MG Tablet.Dr 81 mg PO DAILY Qty: 30 0RF Referrals Follow up/Referrals: Igor Ramirez MD [Primary Care Provider] - See instructions Clinical Impressions Clinical Impression: Epistaxis, Hypertension Instructions Patient Instructions: DI for Nosebleed Discharge ED Provider: Elaina (ED),Franky Mcclain Epistaxis HPI General Chief complaint: Epistaxis Stated complaint: nose bleed Time Seen by Provider: 01/08/23 00:37 Mode of Arrival: Ambulatory Source of Information: Patient and Medical Record Limitations: No Limitations Description of Symptoms (Recalled from ER Triage Doc. by RN): pt to ED with bleeding out of his right nostril. pt reports the bleeding started this afternoon and stopped after a couple of hours but then started to bleed again around 930pm tonight. on assessment pt is found to be hypertensive and stated he stopped taking his HTN medications. pt denies any chest pain, SOB or vision changes. History of Present Illness HPI Narrative: atraumatic bleeding rt sonam CROUCH complaint: epistaxis Location: right nostril Onset (ago): hour(s) Duration: intermittent Context: hypertension Treatment prior to arrival: nose pinching and stuffed nose with tissue Related Data Home Medications Medication Instructions Recorded Confirmed meclizine 25 mg chewable tablet 25 mg PO TID dizziness 11/03/18 11/03/18 Previous Rx's Medication Instructions Recorded aspirin 81 mg tablet,delayed 81 mg PO DAILY ##30 11/04/18 release amlodipine 5 mg-valsartan 160 1 tab PO DAILY Hypertension #90 07/13/22 mg-hydrochlorothiazide 12.5 mg tabs tablet atorvastatin 20 mg tablet 20 mg PO DAILY #30 tabs 07/18/22 metformin 1,000 mg tablet 1,000 mg PO DAILY #30 tabs 07/18/22 Allergies Allergy/AdvReac Type Severity Reaction Status Date / Time No Known Allergies Allergy Verified 09/14/18 12:09 PFSH PFSH Disclaimer: The information contained in this section may have been updated after the patient was seen, as this information can be updated by other users. Social History Smoking Status: Never smoker alcohol intake: never current occupational status: employed Travel in the last 8 weeks: None housing: house caffeine: Yes ROS Obtained: Yes All systems reviewed & no additional complaints except as documented Physical Exam General General appearance: alert Head Head exam: normocephalic Eye Eye exam: Present PERRL and EOMI ENT ENT exam: Present mucous membranes moist Neck Neck exam: Present full ROM Respiratory Respiratory exam: Absent respiratory distress Cardiovascular Cardiovascular exam: Present regular rate Abdominal Exam Abdominal exam: Present soft Extremities Exam Extremities exam: Present full ROM Neurological Exam Neurological exam: Present alert, oriented X3 and CN II-XII intact; Absent motor sensory deficit Psychiatric Psychiatric exam: Present normal affect Skin Skin exam: Absent rash Medical Decision Making Medical Records Medical records reviewed: Yes I reviewed the patient's medical records. Chadd Inquiry Pt receiving controlled substance: No Vital Signs: 01/07/23 23:53 01/08/23 00:01 01/08/23 01:15 Temperature 98.6 F Temperature Source Oral Pulse Rate 81 Pulse Rate [Left Radial] 82 Respiratory Rate 17 22 Blood Pressure 194/101 H 210/120 H Blood Pressure [Right Arm] 194/101 H Blood Pressure Mean 132 Blood Pressure Mean [Right Arm] 132 Blood Pressure Source Manual Cuff/ Doppler Blood Pressure Source [Right Arm] Automatic Cuff Blood Pressure
[2023-01-08 00:38] LABS: Alanine Aminotransferase 27 U/L (12-78); Alkaline Phosphatase 111 U/L (38-126); Anion Gap 8.7 mEq/L (5-15); Aspartate Amino Transferase 27 U/L (17-59); Bilirubin,Total 0.5 mg/dl (0.2-1.3); Blood Urea Nitrogen 14 mg/dl (9-20); Carbon Dioxide 29 mmol/L (22.0-30.0); Creatinine Clearance Estimated 178 mL/min (50-200); Estimated Glomerular Filt Rate 118 ml/min (>60); GFR (African American) 142 ML/MIN (>60)
[2023-01-08 00:39] LABS: Albumin Level 4.1 g/dl (3.5-5.0); Albumin/Globulin Ratio 1.5 (1.1-1.8); Calcium 8.4 mg/dl (8.4-10.2); Globulin 2.7 g/dL (1.3-3.2); Glucose 189 mg/dl (74-100); Total Protein,Serum 6.8 g/dl (6.3-8.2)
== END 2023-01-08 02:13 | disposition home or self-care (01) ==
PROVIDERS: Emergency Provider Emergency Medicine; PCP Family Medicine
DX: R04.0 Epistaxis (principal); I10 Essential (primary) hypertension
CPT/HCPCS: 80053; 85025; 96374; 96375; 99285

== ENCOUNTER 2023-01-08 13:20 | Emergency (ER) | payer BC, SELFPAY ==
[2023-01-08 13:21] VITALS: BP 189/108; PULSE 94; RESP 17; TEMP 36.4; O2SAT 97; BMI 37.9
--- NOTE | 2023-01-08 13:32 | HMH.EDGENADL ---
Discharge Plan Disposition Patient Disposition: Home, Self-Care Prescriptions Prescriptions: New gbxavpgikw-ofvzcjukn-vmdlfqnml 5-160-12.5 mg tablet 1 tab PO DAILY 30 Days Qty: 30 3RF No Action dwladivtwj-drwqpuuca-nvpavtwfi 5-160-12.5 mg tablet 1 tab PO DAILY Qty: 90 0RF atorvastatin 20 mg tablet 20 mg PO DAILY Qty: 30 0RF metformin 1,000 mg tablet 1,000 mg PO DAILY Qty: 30 0RF meclizine 25 MG tablet,chewable 25 mg PO TID aspirin 81 MG tablet,delayed release (DR/EC) 81 mg PO DAILY Qty: 30 0RF Referrals Follow up/Referrals: Igor Ramirez MD [Primary Care Provider] - See instructions Activity Restrictions/Add. Instructions Additional Instructions/Restrictions: Please have your packing removed within 48 hours. Follow-up with primary care doctor for further management of your blood pressure. Return to the emergency department with any worsening or bleeding. Clinical Impressions Clinical Impression: Hypertension, Epistaxis Instructions Patient Instructions: DI for Nosebleed Discharge ED Provider: Zaheer Wallace General Adult HPI General Chief complaint: Epistaxis Stated complaint: nose bleeds Time Seen by Provider: 01/08/23 13:32 History of Present Illness HPI narrative: Patient is a 52-year-old male not on anticoagulation here with right anterior epistaxis. States he was in the emergency department last night the nurse here who is also historian was the [facility] nurse that took care of him yesterday evening as well. He was here late last night and a Rhino Rocket was placed in his right anterior nare and he was told by the physician last night to remove his packing this morning at 8 AM which he did. Subsequently he had ongoing bleeding. Return to the emergency department as a result of this. Of note the patient has significant hypertension and he has had some prescriptions of his amlodipine valsartan and hydrochlorothiazide combination up to several months ago however he claims that he has not been taking his medicine intentionally for the last year. Patient denies any lightheadedness or any other symptoms at the moment. Related Data Home Medications Medication Instructions Recorded Confirmed meclizine 25 mg chewable tablet 25 mg PO TID dizziness 11/03/18 11/03/18 Previous Rx's Medication Instructions Recorded aspirin 81 mg tablet,delayed 81 mg PO DAILY ##30 11/04/18 release amlodipine 5 mg-valsartan 160 1 tab PO DAILY Hypertension #90 07/13/22 mg-hydrochlorothiazide 12.5 mg tabs tablet atorvastatin 20 mg tablet 20 mg PO DAILY #30 tabs 07/18/22 metformin 1,000 mg tablet 1,000 mg PO DAILY #30 tabs 07/18/22 amlodipine 5 mg-valsartan 160 1 tab PO DAILY 30 days #30 tabs 01/08/23 mg-hydrochlorothiazide 12.5 mg tablet Allergies Allergy/AdvReac Type Severity Reaction Status Date / Time No Known Allergies Allergy Verified 09/14/18 12:09 [facility] Disclaimer: The information contained in this section may have been updated after the patient was seen, as this information can be updated by other users. Social History Smoking Status: Never smoker alcohol intake: never current occupational status: employed Travel in the last 8 weeks: None housing: house caffeine: Yes ROS Obtained: Yes All systems reviewed & no additional complaints except as documented Physical Exam General General appearance: alert ENT ENT exam: Present other (Right anterior recent bleeding hemostatic currently with evidence of anterior septal bleeding and mucosal friability) Respiratory Respiratory exam: Present normal lung sounds bilaterally Cardiovascular Cardiovascular exam: Present regular rate and normal rhythm Neurological Exam Neurological exam: Present alert; Absent oriented X3 Medical Decision Making Chadd Inquiry Pt receiving controlled substance: No Vital Signs: 01/08/23 13:21 Temperature 97.6 F Temperature Source Oral Pulse Rate
--- NOTE | 2023-01-08 13:45 | PC.NURSE ---
JEANINE CROUCH at
--- NOTE | 2023-01-08 13:46 | PC.NURSE ---
at pt bedside cauterizing right nare with silver nitrate sticks
--- NOTE | 2023-01-08 13:49 | PC.NURSE ---
inserted Rhino Rocket into right nare at this time
[2023-01-08 14:32] VITALS: BP 177/99; PULSE 86; RESP 17; O2SAT 95
--- NOTE | 2023-01-08 14:49 | PC.NURSE ---
pt has now started to bleed steady out of his left nare. MD notified and to bedside to insert rhino rocket into left nare
--- NOTE | 2023-01-08 15:10 | PC.NURSE ---
called specialty clinic who could make an appointment for pt tomorrow at 4pm
--- NOTE | 2023-01-08 15:18 | PC.NURSE ---
pt continues to bleed down the back of his throat. Dr. Wallace notified
[2023-01-08 15:23] VITALS: BP 170/101; PULSE 91; O2SAT 97
--- NOTE | 2023-01-08 15:33 | PC.NURSE ---
JEANINE CROUCH at discussing POC
--- NOTE | 2023-01-08 15:34 | PC.NURSE ---
Contacting [facility] at this time for possible patient transfer; consulting ENT.
--- NOTE | 2023-01-08 15:43 | PC.NURSE ---
pt sitting up in the chair, report is more comfortable in the position than in the bed.
[2023-01-08 15:49] LABS: Basophils # 0.2 K/mm3 (0-0.2); Basophils % 1.7 % (0.1-2.0); Eosinophils # 0.6 K/mm3 (0.0-0.4); Eosinophils % 5.4 % (0.1-12.0); Hematocrit 46.6 % (42.0-52.0); Hemoglobin 15.6 g/dL (14.1-18.0); Lymphocytes # 3.7 K/mm3 (0.7-4.5); Lymphocytes % 31.5 % (10-50); Mean Corpuscular HGB Conc 33.5 g/dL (31.8-35.4); Mean Corpuscular Hemoglobin 28.7 pg (27.0-31.2); Mean Corpuscular Volume 85.9 fl (80-94); Monocytes # 0.6 K/mm3 (0.1-1.0); Monocytes % 4.7 % (1.7-9.3); Neutrophils # 6.7 K/mm3 (1.8-7.8); Neutrophils % 56.7 % (37.0-80.0); Platelet Count 227 K/mm3 (142-424); Red Blood Count 5.43 M/mm3 (4.60-6.20); Red Cell Distribution Width 14.3 % (11.5-17.5); White Blood Count 11.7 K/mm3 (4.8-10.8)
--- NOTE | 2023-01-08 15:55 | PC.NURSE ---
on the phone with Dr. Diaz at
--- NOTE | 2023-01-08 15:58 | PC.NURSE ---
accepted to [facility] by Dr. Diaz
[2023-01-08 15:59] LABS: Chloride 101 mmol/L (98-107); Sodium 137 mmol/L (136-145)
[2023-01-08 16:00] LABS: Activated Partial Thrombo Time 25.9 seconds (22.8-30.6); INR 0.95 (0.9-1.1); Prothrombin Time 10.3 seconds (10.1-12.5)
[2023-01-08 16:02] LABS: Alanine Aminotransferase 28 U/L (12-78); Albumin Level 4.3 g/dl (3.5-5.0); Albumin/Globulin Ratio 1.4 (1.1-1.8); Alkaline Phosphatase 119 U/L (38-126); Aspartate Amino Transferase 29 U/L (17-59); Bilirubin,Total 0.6 mg/dl (0.2-1.3); Blood Urea Nitrogen 19 mg/dl (9-20); Carbon Dioxide 29 mmol/L (22.0-30.0); Creatinine Clearance Estimated 182 mL/min (50-200); Estimated Glomerular Filt Rate 118 ml/min (>60); GFR (African American) 142 ML/MIN (>60); Total Protein,Serum 7.3 g/dl (6.3-8.2)
--- NOTE | 2023-01-08 16:02 | PC.NURSE ---
notified [facility] of transport needed to ER
[2023-01-08 16:03] LABS: Calcium 8.9 mg/dl (8.4-10.2); Glucose 151 mg/dl (74-100)
--- NOTE | 2023-01-08 16:07 | PC.NURSE ---
report called to NAKUL Huffman [facility]
--- NOTE | 2023-01-08 16:19 | PC.NURSE ---
Raad Frazier. EMS here at [facility] to transfer patient
[2023-01-08 16:34] VITALS: BP 122/112; PULSE 93; RESP 17; TEMP 36.6; O2SAT 98
== END 2023-01-08 16:36 | disposition home or self-care (01) ==
PROVIDERS: Emergency Provider Student in an Organized Health Care Education/Training Program; PCP Family Medicine
DX: R04.0 Epistaxis (principal); I10 Essential (primary) hypertension
CPT/HCPCS: 30903; 80053; 85025; 85610; 85730; 96374; 99285; J2405

== ENCOUNTER → 2023-01-14 12:00 | Outpatient (CLI) | payer BC, SELFPAY ==
[2023-01-14 20:03] LABS: Creatinine,Urine Random 121 mg/dL (Not Estab.)
[2023-01-14 21:24] LABS: Microalbumin/Creatinine Ratio 38.8
== END ==
PROVIDERS: PCP Nurse Practitioner; Visit Provider Nurse Practitioner
DX: E11.9 Type 2 diabetes mellitus without complications (principal); I10 Essential (primary) hypertension; Z79.84 Long term (current) use of oral hypoglycemic drugs
CPT/HCPCS: 82043; 82570

== ENCOUNTER → 2023-01-15 21:20 | Outpatient (CLI) | payer BC, SELFPAY ==
[2023-01-15 21:52] LABS: Basophils # 0.1 K/mm3 (0-0.2); Basophils % 0.8 % (0.1-2.0); Eosinophils # 0.7 K/mm3 (0.0-0.4); Eosinophils % 5.6 % (0.1-12.0); Hematocrit 40.3 % (42.0-52.0); Hemoglobin 12.9 g/dL (14.1-18.0); Lymphocytes # 2.9 K/mm3 (0.7-4.5); Mean Corpuscular Hemoglobin 28.6 pg (27.0-31.2); Mean Corpuscular Volume 89.3 fl (80-94); Mean Platelet Volume 10.2 fl (7.4-10.4); Monocytes # 0.7 K/mm3 (0.1-1.0); Monocytes % 5.7 % (1.7-9.3); Neutrophils # 8.2 K/mm3 (1.8-7.8); Platelet Count 363 K/mm3 (142-424); Red Blood Count 4.52 M/mm3 (4.60-6.20); Red Cell Distribution Width 14.5 % (11.5-17.5); White Blood Count 12.6 K/mm3 (4.8-10.8)
[2023-01-15 22:07] LABS: Alanine Aminotransferase 22 U/L (12-78); Albumin/Globulin Ratio 1.5 (1.1-1.8); Alkaline Phosphatase 129 U/L (38-126); Anion Gap 9.7 mEq/L (5-15); Aspartate Amino Transferase 26 U/L (17-59); Bilirubin,Total 0.6 mg/dl (0.2-1.3); Blood Urea Nitrogen 15 mg/dl (9-20); Calcium 8.9 mg/dl (8.4-10.2); Carbon Dioxide 31 mmol/L (22.0-30.0); Chloride 98 mmol/L (98-107); Chol/HDL Ratio 5.4 (1-3.5); Cholesterol 140 mg/dl (140-200); Estimated Glomerular Filt Rate 118 ml/min (>60); GFR (African American) 142 ML/MIN (>60); Globulin 2.6 g/dL (1.3-3.2); Glucose 170 mg/dl (74-100); HDL Cholesterol 26 mg/dl (40-60); Potassium 4.7 mmoL/L (3.5-5.1); Sodium 134 mmol/L (136-145); Total Protein,Serum 6.6 g/dl (6.3-8.2); Triglycerides 199 mg/dl (30-150); VLDL Cholesterol 40 mg/dL (0-40)
[2023-01-15 22:18] LABS: Direct LDL Cholesterol 88.43 mg/dL (100-129)
[2023-01-15 22:24] LABS: 25-OH Vitamin D, Total 15.9 ng/mL (30-100)
[2023-01-15 22:37] LABS: Prostate Specific Ag Screen 0.6 ng/ml (0.0-4.0); Thyroid Stimulating Hormone 1.62 uIU/mL (0.465-4.68)
[2023-01-15 22:56] LABS: Vitamin B12 429 pg/mL (239-931)
[2023-01-16 08:58] LABS: Hemoglobin A1C 7.6 % (4.0-6.0)
== END ==
PROVIDERS: PCP Nurse Practitioner; Visit Provider Nurse Practitioner
DX: R04.0 Epistaxis (principal); E11.9 Type 2 diabetes mellitus without complications; E78.5 Hyperlipidemia, unspecified; I10 Essential (primary) hypertension; E55.9 Vitamin D deficiency, unspecified; Z79.84 Long term (current) use of oral hypoglycemic drugs; Z12.5 Encounter for screening for malignant neoplasm of prostate
CPT/HCPCS: 80053; 80061; 82306; 82607; 83036; 84443; 85025; G0103

== ENCOUNTER → 2023-02-04 23:19 | Outpatient (CLI) | payer BC, SELFPAY ==
[2023-02-04 18:20] LABS: Basophils # 0.1 K/mm3 (0-0.2); Basophils % 0.4 % (0.1-2.0); Eosinophils # 0.8 K/mm3 (0.0-0.4); Eosinophils % 5.3 % (0.1-12.0); Hemoglobin 13.5 g/dL (14.1-18.0); Lymphocytes # 3.9 K/mm3 (0.7-4.5); Lymphocytes % 24.8 % (10-50); Mean Corpuscular HGB Conc 32.1 g/dL (31.8-35.4); Mean Corpuscular Hemoglobin 27.6 pg (27.0-31.2); Mean Platelet Volume 9.2 fl (7.4-10.4); Monocytes # 0.7 K/mm3 (0.1-1.0); Monocytes % 4.7 % (1.7-9.3); Neutrophils # 10.1 K/mm3 (1.8-7.8); Neutrophils % 64.7 % (37.0-80.0); Platelet Count 358 K/mm3 (142-424); Red Blood Count 4.89 M/mm3 (4.60-6.20); Red Cell Distribution Width 14.5 % (11.5-17.5); White Blood Count 15.6 K/mm3 (4.8-10.8)
[2023-02-04 18:39] LABS: MANUAL DIFFERENTIAL MANUAL DIFFERENTIAL (MANUAL DIFF)
[2023-02-04 20:33] LABS: Eosinophils % 4 % (0-3); Lymphocytes % 24 % (10-50); Monocytes % 5 % (2-9); Neutrophils % 67 % (42-76); Total Cells Counted 100
[2023-02-04 20:34] LABS: Platelet Estimate Normal; RBC Morphology Normal
== END ==
PROVIDERS: PCP Nurse Practitioner; Visit Provider Nurse Practitioner
DX: R04.0 Epistaxis (principal); E11.9 Type 2 diabetes mellitus without complications; S91.302A Unspecified open wound, left foot, initial encounter; Z79.84 Long term (current) use of oral hypoglycemic drugs
CPT/HCPCS: 85007; 85025; 87070; 87077; 87186; 87205

== ENCOUNTER → 2023-02-21 07:58 | Outpatient (CLI) | payer BC, SELFPAY ==
--- NOTE | 2023-02-21 08:02 | XR_ITS ---
FINAL REPORT CLINICAL HISTORY: Right foot pain COMPARISON: None FINDINGS: RIGHT FOOT 3 views of the right foot were obtained. Mild Chas deformity. Small osteophytes are present. There is a small plantar calcaneal spur. There is no acute fracture or dislocation. There are hypertrophic changes of the 1st interphalangeal joint. Visualized joint spaces are normally aligned. Soft tissues are unremarkable. IMPRESSION: No acute bony abnormality. Reviewed, Interpreted and Dictated by Henry Hamilton MD Transcribed by Katy Prescott Authenticated and [facility]
--- NOTE | 2023-02-21 08:02 | XR_ITS ---
FINAL REPORT CLINICAL HISTORY: Left foot pain COMPARISON: None FINDINGS: LEFT FOOT Three views of the left foot demonstrate no acute fracture or dislocation. There is a minimal Chas's deformity. There are mild hypertrophic changes of the 1st interphalangeal joint. The visualized joint spaces are normally aligned. The soft tissues are unremarkable. IMPRESSION: No acute bony abnormality. Reviewed, Interpreted and Dictated by Henry Hamilton MD Transcribed by Katy Prescott Authenticated and [facility]
== END ==
PROVIDERS: PCP Nurse Practitioner; Visit Provider Nurse Practitioner Family
DX: M79.671 Pain in right foot (principal); M79.672 Pain in left foot; S91.302A Unspecified open wound, left foot, initial encounter; B95.2 Enterococcus as the cause of diseases classified elsewhere; B35.3 Tinea pedis
CPT/HCPCS: 73630; 87070; 87077; 87102; 87186; 87205; 87206

== ENCOUNTER → 2023-02-21 16:19 | Outpatient (CLI) | payer BC, SELFPAY | PROVIDERS: Visit Provider Nurse Practitioner Family | DX: E11.9 Type 2 diabetes mellitus without complications (principal) ==

== ENCOUNTER 2023-03-26 11:28 | Emergency (ER) | payer BC, SELFPAY ==
[2023-03-26 11:30] VITALS: BP 128/71; PULSE 74; RESP 20; TEMP 36.8; O2SAT 98; BMI 38.3
--- NOTE | 2023-03-26 11:50 | PC.NURSE ---
WHILE JOHN WAS SPEAKING WITH PATIENT, PATIENT STATES I DON'T FEEL RIGHT AND STATES HE WAS TINGLING ALL OVER. PATIENT THEN BECAME PALE AND STARTED STARING OFF. PATIENT NOT RESPONDING TO STAFF, DIAPHORETIC, UNABLE TO SPEAK. PATIENT TRANSFERED TO [facility] AND TRANSPORTED TO ER AT THIS TIME. REPORT GIVEN TO Willy MCCLAIN RN PER Neo RODRIGUEZ APRN
--- NOTE | 2023-03-26 11:59 | ECG_ITS ---
APPROVED REPORT Exam: Resting ECG HR:73 bpm ECG Measurements Heart Rate 73 AXES AZ 171 P 44 QRSd 101 QRS 34 QT 415 T 25 QTc 440 Conclusion SINUS RHYTHM NORMAL ECG UNCONFIRMED REPORT Electronically signed by : Nestor Brambila MD 03/28/2023 09:29:06
[2023-03-26 12:00] VITALS: BP 115/69; PULSE 76; RESP 16; O2SAT 96
--- NOTE | 2023-03-26 12:01 | PC.NURSE ---
pt sugar is 182
[2023-03-26 12:09] VITALS: BP 115/78; PULSE 66; RESP 20; TEMP 36.9; O2SAT 96; BMI 40.3
--- NOTE | 2023-03-26 12:25 | HMH.EDGENADL ---
Discharge Plan Disposition Patient Disposition: Home, Self-Care Prescriptions Prescriptions: New ibuprofen 800 mg tablet 800 mg PO TID PRN (Reason: pain) 7 Days Qty: 20 0RF No Action (DME) Blood Glucose Test Strip See Rx Instructions .MEDSUPPLY Qty: 50 11RF Rx Instructions: As directed (DME) blood-glucose meter [Blood Glucose Monitoring] Kit See Rx Instructions .MEDSUPPLY Qty: 1 0RF Rx Instructions: As directed (DME) lancets Misc See Rx Instructions .MEDSUPPLY Qty: 100 11RF Rx Instructions: As directed miconazole nitrate 2 % aerosol powder 1 spray topical BID Qty: 133 0RF Jardiance 10 mg tablet 10 mg PO DAILY Qty: 30 2RF amlodipine 10 mg tablet 10 mg PO DAILY Qty: 90 1RF atorvastatin 20 mg tablet 20 mg PO DAILY Qty: 90 1RF cholecalciferol (vitamin D3) 125 mcg (5,000 unit) tablet 125 mcg PO DAILY Qty: 90 1RF hydrochlorothiazide 25 mg tablet 25 mg PO DAILY Qty: 90 1RF metformin 1,000 mg tablet extended release 24 hr 1,000 mg PO DAILY Qty: 90 1RF valsartan 160 mg tablet 160 mg PO DAILY Qty: 90 1RF Referrals Follow up/Referrals: Sobia Cain APRN [Primary Care Provider] - See instructions Activity Restrictions/Add. Instructions Additional Instructions/Restrictions: I would recommend you follow-up as soon as possible to get an outpatient MRI as there is diagnostic uncertainty. Your x-ray was normal no bone or joint abnormalities. There is no fluid on a soft tissue ultrasound to suggest a brewing infection. Additionally there is no redness warmth fever or other symptoms to suggest a septic joint. However without an injury is unclear exactly what is going on and you need to have close follow-up with your primary care physician regarding what is causing your arthritis in your wrist. Return with any fevers redness objective swelling or other concerns. You may wear your volar wrist Velcro splint for comfort as needed. Clinical Impressions Clinical Impression: Acute wrist pain Instructions Patient Instructions: DI for Syncope in Adults (Fainting), DI for Syncope in Children (Fainting) Discharge ED Provider: Zaheer Wallace General Adult HPI General Chief complaint: Syncope Stated complaint: LT arm pain w/ inflammation Time Seen by Provider: 03/26/23 12:25 Mode of Arrival: Wheelchair Source of Information: Patient Limitations: No Limitations Description of Symptoms (Recalled from ER Triage Doc. by RN): pt to ed c/o near syncope. pt was being seen in the [facility] for wrist pain when he became diaphoretic and near syncopal. pt states he only has pain in his wrist. pt denies any cardiac hx secondary to htn. pt vss on arrivl to ed. History of Present Illness HPI narrative: Patient is a 52-year-old male presenting with left wrist pain has been on traumatic. States that he was over at the urgent treatment clinic, he was having a significant episode of pain he became diaphoretic and this was short-lived. He had no chest pain or shortness of breath still denies any chest pain or shortness of breath the pain in his wrist is not radiating and is focal and has been focal the entire time. He said that he thinks that he slept on it but is not sure exactly. No traumatic events that he is aware of. There is been no swelling no erythema no fevers no history of gout and is not feeling systemically ill. Related Data Previous Rx's Medication Instructions Recorded blood sugar diagnostic (Blood #50 ea 01/14/23 Glucose Test strips) blood-glucose meter (Blood Glucose #1 ea 01/14/23 Monitoring kit) lancets #100 ea 01/14/23 miconazole nitrate 2 % topical 1 spray topical BID #133 grams 02/04/23 spray powder amlodipine 10 mg tablet 10 mg PO DAILY #90 tabs 03/07/23 atorvastatin 20 mg tablet 20 mg PO DAILY #90 tabs 03/07/23 cholecalciferol (vitamin D3) 125 125 mcg PO DAILY #90 tabs 03/07/23 mcg (5,000 unit) tablet empagliflozin 10 mg tablet 10 m
--- NOTE | 2023-03-26 12:31 | XR_ITS ---
FINAL REPORT CLINICAL HISTORY: non traumatic wrist pain FINDINGS: LEFT WRIST THREE VIEW FINDINGS: Three views show no evidence of an acute, displaced fracture or dislocation of the visualized bony architecture. Mild degenerative joint disease is present. 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 IMPRESSION: Degenerative changes. No acute bony abnormality . 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 Reviewed, Interpreted and Dictated by Lynda Galeano MD Transcribed by Adriana Cao Authenticated and [facility]
[2023-03-26 12:41] VITALS: BP 92/56; PULSE 62; O2SAT 94
--- NOTE | 2023-03-26 12:43 | PC.NURSE ---
pt states no complaints at this time, water and ice chips at bedside, tap burdick at bedside
--- NOTE | 2023-03-26 12:45 | PC.NURSE ---
rad at bedside for xray
[2023-03-26 13:01] VITALS: BP 93/64; PULSE 57; O2SAT 94
[2023-03-26 13:46] VITALS: BP 132/76; PULSE 63; RESP 20; TEMP 36.9; O2SAT 97
== END 2023-03-26 13:47 | disposition home or self-care (01) ==
LOC: UTC 11:31 → ER 11:53
PROVIDERS: Emergency Provider Student in an Organized Health Care Education/Training Program; PCP Nurse Practitioner
DX: R55 Syncope and collapse (principal); M25.532 Pain in left wrist; E78.5 Hyperlipidemia, unspecified
CPT/HCPCS: 76882; 73110; 93005; 99283; 99284

== ENCOUNTER → 2023-03-27 14:00 | Outpatient (CLI) | payer BC, SELFPAY ==
[2023-03-27 18:44] LABS: Basophils # 0.1 K/mm3 (0-0.2); Basophils % 0.4 % (0.1-2.0); Eosinophils # 0.9 K/mm3 (0.0-0.4); Eosinophils % 8.1 % (0.1-12.0); Hematocrit 46.4 % (42.0-52.0); Lymphocytes # 2.7 K/mm3 (0.7-4.5); Lymphocytes % 24.8 % (10-50); Mean Corpuscular HGB Conc 32.4 g/dL (31.8-35.4); Mean Corpuscular Hemoglobin 26.6 pg (27.0-31.2); Mean Corpuscular Volume 82.1 fl (80-94); Mean Platelet Volume 9.1 fl (7.4-10.4); Monocytes # 0.7 K/mm3 (0.1-1.0); Monocytes % 6.3 % (1.7-9.3); Neutrophils # 6.7 K/mm3 (1.8-7.8); Neutrophils % 60.5 % (37.0-80.0); Platelet Count 265 K/mm3 (142-424); Red Blood Count 5.66 M/mm3 (4.60-6.20); Red Cell Distribution Width 15.2 % (11.5-17.5); White Blood Count 11.1 K/mm3 (4.8-10.8)
[2023-03-27 19:31] LABS: Erythrocyte Sedimentation Rate 11 mm/hr (0-20)
[2023-03-27 19:48] LABS: Hemoglobin A1C 7.4 % (4.0-6.0)
[2023-03-27 19:49] LABS: Alanine Aminotransferase 29 U/L (12-78); Albumin Level 4.4 g/dl (3.5-5.0); Albumin/Globulin Ratio 1.5 (1.1-1.8); Alkaline Phosphatase 164 U/L (38-126); Anion Gap 17.6 mEq/L (5-15); Aspartate Amino Transferase 24 U/L (17-59); Bilirubin,Total 0.8 mg/dl (0.2-1.3); Blood Urea Nitrogen 13 mg/dl (9-20); Carbon Dioxide 29 mmol/L (22.0-30.0); Chloride 96 mmol/L (98-107); Estimated Glomerular Filt Rate 101 ml/min (>60); GFR (African American) 122 ML/MIN (>60); Glucose 176 mg/dl (74-100); Potassium 3.6 mmoL/L (3.5-5.1); Sodium 139 mmol/L (136-145); Total Protein,Serum 7.4 g/dl (6.3-8.2)
[2023-03-27 19:59] LABS: C-Reactive Protein 50.4 mg/L (0-4)
[2023-03-29 14:22] LABS: RA Latex Turbid. <10.0 IU/mL (<14.0)
[2023-04-01 09:59] LABS: Antinuclear Antibodies, IFA Negative (.)
== END ==
PROVIDERS: PCP Nurse Practitioner; Visit Provider Nurse Practitioner
DX: E11.9 Type 2 diabetes mellitus without complications (principal); M25.532 Pain in left wrist; Z79.84 Long term (current) use of oral hypoglycemic drugs
CPT/HCPCS: 80053; 83036; 84550; 85025; 85651; 86038; 86140; 86431

== ENCOUNTER → 2023-04-09 14:40 | Outpatient (CLI) | payer BC, SELFPAY | PROVIDERS: PCP Nurse Practitioner; Visit Provider Nurse Practitioner | DX: M25.532 Pain in left wrist (principal) ==

== ENCOUNTER → 2023-05-09 15:48 | Outpatient (CLI) | payer BC, SELFPAY ==
[2023-05-09 18:34] LABS: Alanine Aminotransferase 27 U/L (12-78); Albumin Level 4.3 g/dl (3.5-5.0); Albumin/Globulin Ratio 1.7 (1.1-1.8); Alkaline Phosphatase 141 U/L (38-126); Anion Gap 13.1 mEq/L (5-15); Aspartate Amino Transferase 25 U/L (17-59); Bilirubin,Total 0.5 mg/dl (0.2-1.3); Blood Urea Nitrogen 17 mg/dl (9-20); Calcium 9.3 mg/dl (8.4-10.2); Carbon Dioxide 29 mmol/L (22.0-30.0); Chloride 103 mmol/L (98-107); Chol/HDL Ratio 5.2 (1-3.5); Cholesterol 134 mg/dl (140-200); Estimated Glomerular Filt Rate 78 ml/min (>60); GFR (African American) 94 ML/MIN (>60); Globulin 2.6 g/dL (1.3-3.2); Glucose 225 mg/dl (74-100); HDL Cholesterol 26 mg/dl (40-60); Potassium 4.1 mmoL/L (3.5-5.1); Sodium 141 mmol/L (136-145); Total Protein,Serum 6.9 g/dl (6.3-8.2)
[2023-05-09 18:35] LABS: Triglycerides 483 mg/dl (30-150)
[2023-05-09 18:45] LABS: C-Reactive Protein 3.9 mg/L (0-4); Direct LDL Cholesterol 54.28 mg/dL (100-129)
[2023-05-09 18:50] LABS: 25-OH Vitamin D, Total 46.8 ng/mL (30-100)
[2023-05-09 20:29] LABS: Hemoglobin A1C 7.3 % (4.0-6.0)
== END ==
PROVIDERS: PCP Nurse Practitioner; Visit Provider Nurse Practitioner
DX: E11.9 Type 2 diabetes mellitus without complications (principal); E55.9 Vitamin D deficiency, unspecified; E78.5 Hyperlipidemia, unspecified; I10 Essential (primary) hypertension; M25.532 Pain in left wrist; R79.82 Elevated C-reactive protein (CRP); Z79.84 Long term (current) use of oral hypoglycemic drugs
CPT/HCPCS: 80053; 80061; 82306; 83036; 84550; 86140

== ENCOUNTER → 2023-09-26 07:26 | Outpatient (CLI) | payer BC, SELFPAY | PROVIDERS: PCP Nurse Practitioner; Visit Provider Nurse Practitioner | DX: R10.30 Lower abdominal pain, unspecified (principal) | CPT/HCPCS: 87086 ==

== ENCOUNTER 2024-05-07 13:38 | Outpatient (CLI) | payer BC, SELFPAY ==
[2024-05-07 18:54] LABS: Basophils # 0.1 K/mm3 (0-0.2); Hematocrit 55.8 % (42.0-52.0); Lymphocytes % 26.6 % (10-50); Mean Corpuscular HGB Conc 32.5 g/dL (31.8-35.4); Mean Corpuscular Hemoglobin 30.5 pg (27.0-31.2); Mean Corpuscular Volume 93.8 fl (80-94); Mean Platelet Volume 10.4 fl (7.4-10.4); Monocytes # 0.6 K/mm3 (0.1-1.0); Neutrophils # 6.5 K/mm3 (1.8-7.8); Neutrophils % 58.4 % (37.0-80.0); Platelet Count 189 K/mm3 (142-424); Red Blood Count 5.95 M/mm3 (4.60-6.20); Red Cell Distribution Width 14.6 % (11.5-17.5); White Blood Count 11.2 K/mm3 (4.8-10.8)
[2024-05-07 19:03] LABS: Hemoglobin 18.3 g/dL (14.1-18.0)
[2024-05-07 19:12] LABS: Alanine Aminotransferase 33 U/L (12-78); Albumin Level 4.2 g/dl (3.5-5.0); Albumin/Globulin Ratio 1.4 (1.1-1.8); Alkaline Phosphatase 130 U/L (38-126); Anion Gap 11.6 mEq/L (5-15); Aspartate Amino Transferase 28 U/L (17-59); Bilirubin,Total 0.8 mg/dl (0.2-1.3); Blood Urea Nitrogen 15 mg/dl (9-20); Calcium 9.6 mg/dl (8.4-10.2); Carbon Dioxide 26 mmol/L (22.0-30.0); Chloride 110 mmol/L (98-107); Chol/HDL Ratio 5.4 (1-3.5); Cholesterol 168 mg/dl (140-200); Estimated Glomerular Filt Rate 100 ml/min (>60); GFR (African American) 121 ML/MIN (>60); Globulin 2.9 g/dL (1.3-3.2); Glucose 135 mg/dl (74-100); HDL Cholesterol 31 mg/dl (40-60); Potassium 4.6 mmoL/L (3.5-5.1); Sodium 143 mmol/L (136-145); Total Protein,Serum 7.1 g/dl (6.3-8.2); Triglycerides 328 mg/dl (30-150); VLDL Cholesterol 66 mg/dL (0-40)
[2024-05-07 19:23] LABS: Direct LDL Cholesterol 76.28 mg/dL (100-129)
[2024-05-07 19:30] LABS: 25-OH Vitamin D, Total 43.4 ng/mL (30-100)
[2024-05-07 19:46] LABS: Prostate Specific Ag Screen 0.6 ng/ml (0.0-4.0); Thyroid Stimulating Hormone 1.13 uIU/mL (0.465-4.68)
[2024-05-07 20:01] LABS: Hemoglobin A1C 6.6 % (4.0-6.0)
[2024-05-07 20:04] LABS: Creatinine,Urine Random 78 mg/dL (Not Estab.)
[2024-05-07 20:05] LABS: Vitamin B12 396 pg/mL (239-931)
[2024-05-07 20:09] LABS: Microalbumin/Creatinine Ratio 127.6
[2024-05-09 10:23] LABS: Testosterone,Total 316 ng/dL (264-916)
== END 2024-05-07 23:59 | disposition home or self-care (01) ==
LOC: LAB.DROPOF 05-08 13:39
PROVIDERS: PCP Nurse Practitioner; Visit Provider Nurse Practitioner
DX: I10 Essential (primary) hypertension; E78.5 Hyperlipidemia, unspecified; N52.9 Male erectile dysfunction, unspecified; E55.9 Vitamin D deficiency, unspecified; E11.621 Type 2 diabetes mellitus with foot ulcer; L97.509 Non-pressure chronic ulcer of other part of unspecified foot with unspecified severity
CPT/HCPCS: 80050; 80053; 80061; 82043; 82306; 82570; 82607; 83036; 84403; 84443; 85025; 87086; 87088; G0103

== ENCOUNTER 2024-06-04 08:53 | Outpatient (CLI) | payer BC, SELFPAY ==
--- NOTE | 2024-06-04 08:56 | XR_ITS ---
FINAL REPORT CLINICAL HISTORY: bilateral low back pain with bilateral sciatica COMPARISON: None FINDINGS: LUMBAR SPINE: AP and lateral views of the lumbar spine were obtained. There is no prior exam for comparison. There is no acute fracture or malalignment. Vertebral body height is preserved. Mild and moderate degenerative changes are present with multilevel osteophytes. No acute paraspinal abnormality. IMPRESSION: Mild and moderate degenerative change, with multilevel osteophytes. No acute bony abnormality is identified. Reviewed, Interpreted and Dictated by Al Paul III, MD Transcribed by Adriana Cao Authenticated and [facility]
== END 2024-06-04 23:59 | disposition home or self-care (01) ==
LOC: RAD 08:54
PROVIDERS: PCP Nurse Practitioner; Visit Provider Nurse Practitioner
DX: M54.42 Lumbago with sciatica, left side (principal); M54.41 Lumbago with sciatica, right side
CPT/HCPCS: 72100

== ENCOUNTER 2024-06-07 11:40 | Emergency (ER) | payer BC, SELFPAY ==
[2024-06-07 11:40] VITALS: BP 151/86; PULSE 64; RESP 18; TEMP 36.7; O2SAT 98; BMI 37.1
--- NOTE | 2024-06-07 12:06 | ED_ITS ---
Discharge Plan Disposition Patient Disposition: Home, Self-Care Condition: Good Prescriptions Prescriptions: New diazepam [Valium] 5 mg tablet 5 mg PO Q8H PRN (Reason: muscle spasm) Qty: 7 0RF ketorolac 10 mg tablet 10 mg PO Q8H PRN (Reason: pain) Qty: 14 0RF lidocaine [Lidoderm] 5 % adhesive patch,medicated 1 patch topical DAILY Qty: 15 0RF Rx Instructions: leave on most painful area for up to 12 hrs No Action methylprednisolone 4 mg tablets,dose pack See Rx Instructions PO PER PKG DIR Qty: 21 0RF Rx Instructions: PO PER PKG DIR cyclobenzaprine 10 mg tablet 10 mg PO TID PRN (Reason: muscle spasm) Qty: 30 0RF Jardiance 10 mg tablet 10 mg PO DAILY Qty: 90 2RF sildenafil (pulm.hypertension) 20 mg tablet 40 - 60 mg PO ONCE PRN (Reason: sexual activity) Qty: 30 2RF Rx Instructions: take 30 min to 4 hours prior to sexual activity metformin 500 mg tablet extended release 24 hr See Rx Instructions .ROUTE .COMPLEX Qty: 180 1RF Dose Instruction: Take 2 Tablets by mouth once daily. Rx Instructions: Take 2 Tablets by mouth once daily. amlodipine 10 mg tablet See Rx Instructions .ROUTE .COMPLEX Qty: 90 1RF Dose Instruction: Take 1 Tablet by mouth once daily. Rx Instructions: Take 1 Tablet by mouth once daily. atorvastatin 20 mg tablet See Rx Instructions .ROUTE .COMPLEX Qty: 90 1RF Dose Instruction: Take 1 Tablet by mouth once daily. Rx Instructions: Take 1 Tablet by mouth once daily. hydrochlorothiazide 25 mg tablet See Rx Instructions .ROUTE .COMPLEX Qty: 90 1RF Dose Instruction: Take 1 Tablet by mouth once daily. Rx Instructions: Take 1 Tablet by mouth once daily. cholecalciferol (vitamin D3) [Vitamin D3] 125 mcg (5,000 unit) tablet See Rx Instructions .ROUTE .COMPLEX Qty: 30 5RF Dose Instruction: Take 1 tablet by mouth once daily Rx Instructions: Take 1 tablet by mouth once daily valsartan 160 mg tablet See Rx Instructions .ROUTE .COMPLEX Qty: 90 1RF Dose Instruction: TAKE 1 TABLET BY MOUTH ONCE DAILY Rx Instructions: TAKE 1 TABLET BY MOUTH ONCE DAILY tamsulosin 0.4 mg capsule 0.4 mg PO DAILY Qty: 30 2RF Referrals Follow up/Referrals: Sobia Cain APRN [Primary Care Provider] - See instructions Activity Restrictions/Add. Instructions Additional Instructions/Restrictions: You were evaluated in the emergency department today. Please follow-up very closely with your primary care provider. gwot ia/ilo intelligence support your prescriptions at the pharmacy and take them as needed for pain. Use caution when taking Valium, which is a very strong muscle relaxer. It can be very sedating. Do not take this medication with other sedating medications or with alcohol. Do not drive or operate heavy machinery while taking this medication. Return to the emergency department for new or worsening symptoms, such as new numbness or tingling in your groin, new incontinence, or other concerns Clinical Impressions Clinical Impression: Acute left-sided low back pain with sciatica Stand Alone Forms Stand Alone Forms: Work/School Release Instructions Patient Instructions: DI for Sciatica, DI for Back Pain With Sciatica Print Language Print Language: [place] Discharge ED Provider: Snehal Henson General Adult HPI General Chief complaint: Extremity Problem,Nontraumatic Stated complaint: left leg pain, unable to walk, no accident Time Seen by Provider: 06/07/24 11:45 Mode of Arrival: Wheelchair Source of Information: Patient Limitations: No Limitations Description of Symptoms (Recalled from ER Triage Doc. by RN): c/o left lower back pain that travels down his leg that has been going on for a few weeks although this morning the pain increased and making it hard to walk. No injury History of Present Illness HPI narrative: This patient is a 53-year-old male with a history of hypertension, hyperlipidemia, diabetes, and recent diagnosis of left-sided sciatica presenting to the emergency department for evaluation with concern for left buttock pain radiating down his left leg. Patient states that is been going on for a few weeks now but has gotten much worse today, making it difficult to walk. No new falls or injuries. No numbness or tingling in his groin, no incontinence or urinary retention. No fevers, chills, or infectious symptoms. He states that he has been treated for sciatica by his primary care provider, but the medications are not helping. On medical record review, it was like he was prescribed Medrol Dosepak and Flexeril. Related Data Previous Rx's ?Medication ?Instructions ?Recorded empagliflozin 10 mg tablet 10 mg PO DAILY #90 tabs 09/10/23 (Jardiance) sildenafil (pulm.hypertension) 20 40 - 60 mg (2 - 3 x 20 mg) PO ONCE 09/10/23 mg tablet PRN sexual activity #30 tabs amlodipine 10 mg tablet See Rx Instructions .Route 03/10/24 .COMPLEX #90 tabs atorvastatin 20 mg tablet See Rx Instructions .Route 03/10/24 .COMPLEX #90 tabs hydrochlorothiazide 25 mg tablet See Rx Instructions .Route 03/10/24 .COMPLEX #90 tabs metformin 500 mg tablet,extended See Rx Instructions .Route 03/10/24 release 24 hr .COMPLEX #180 tabs cholecalciferol (vitamin D3) 125 See Rx Instructions .Route 03/31/24 mcg (5,000 unit) tablet (Vitamin .COMPLEX #30 tabs D3) valsartan 160 mg tablet See Rx Instructions .Route 04/08/24 .COMPLEX #90 tabs tamsulosin 0.4 mg capsule 0.4 mg PO DAILY #30 caps 04/16/24 cyclobenzaprine 10 mg tablet 10 mg PO TID PRN muscle spasm #30 06/02/24 tabs methylprednisolone 4 mg tablets in See Rx Instructions PO PER PKG DIR 06/02/24 a dose pack #21 tabs diazepam 5 mg tablet (Valium) 5 mg PO Q8H PRN muscle spasm #7 06/07/24 tabs ketorolac 10 mg tablet 10 mg PO Q8H PRN pain #14 tabs 06/07/24 lidocaine 5 % topical patch 1 patch topical DAILY #15 ea 06/07/24 (Lidoderm) Allergies Allergy/AdvReac Type Severity Reaction Status Date / Time No Known Allergies Allergy Verified 06/02/24 14:07 [facility] Disclaimer: The information contained in this section may have been updated after the patient was seen, as this information can be updated by other users. Medical History Acute bilateral low back pain with bilateral sciatica Hematuria Screening for malignant neoplasm of colon declined Has daytime drowsiness Elevated C-reactive protein Vitamin D deficiency Erectile dysfunction Acute pain of left wrist Hyperlipidemia Social History Smoking Status: Former smoker alcohol intake: never current occupational status: employed Travel in the last 8 weeks: None housing: house caffeine: Yes ROS Obtained: Yes All systems reviewed & no additional complaints except as documented Physical Exam General General appearance: alert and in no apparent distress Head Head exam: atraumatic and normocephalic Eye Eye exam: Present normal appearance, PERRL and EOMI ENT ENT exam: Present normal exam, normal oropharynx, mucous membranes moist and normal external ear exam Neck Neck exam: Present normal inspection, full ROM and trachea midline; Absent tend erness Chest Chest inspection: Present normal inspection and symmetric chest wall rise; Absent tenderness Respiratory Respiratory exam: Present normal lung sounds bilaterally; Absent respiratory distress, wheezes, stridor or accessory muscle use Cardiovascular Cardiovascular exam: Present regular rate and normal rhythm Abdominal Exam Abdominal exam: Present soft; Absent distention, tenderness or guarding Extremities Exam Extremities exam: Present normal inspection, full ROM and normal capillary refill; Absent tenderness or edema Back Exam Back exam: Present full ROM and tenderness (Left buttock) Neurological Exam Neurological exam: Present alert, oriented X3, CN II-XII intact and normal gait; Absent motor sensory deficit Psychiatric Psychiatric exam: Present normal affect and normal mood Skin Skin exam: Present warm and dry Medical Decision Making Medical Records Medical records reviewed: Yes I reviewed the patient's medical records. Chadd Inquiry Pt receiving controlled substance: Yes Chadd was queried for this patient: Yes Risks and benefits of using a controlled substance: were discussed with pt by me Vital Signs: 06/07/24 11:40 Temperature 98.0 F Temperature Source Oral Pulse Rate [Left Radial] 64 Respiratory Rate 18 Blood Pressure [Right Arm] 151/86 H Blood Pressure Mean [Right Arm] 107 Blood Pressure Source [Right Arm] Automatic Cuff Blood Pressure Position [Right Arm] Sitting 02 Sat by Pulse Oximetry 98 Oxygen Delivery Method Room Air Lab Data Lab results reviewed: Yes I reviewed the patient's lab results. Orders (Tests/Meds): ED MEDICATIONS Discontinued Medications Generic Name Dose Route Start Last Admin Trade Name Freq PRN Reason Stop Dose Admin Acetaminophen 1,000 mg 06/07/24 12:05 06/07/24 12:18 Acetaminophen 500mg Tab PO 06/07/24 12:06 1,000 mg ONCE ONE Administration Diazepam 5 mg 06/07/24 12:05 06/07/24 12:18 Diazepam 5mg Tablet PO 06/07/24 12:06 5 mg ONCE ONE Administration Ketorolac Tromethamine 30 mg 06/07/24 12:05 06/07/24 12:18 Ketorolac 30mg/Ml Vial IM 06/07/24 12:06 30 mg ONCE ONE Administration Lidocaine 1 each 06/07/24 12:05 06/07/24 12:18 Lidocaine 5% Transdermal Patch TP 06/07/24 12:06 1 each ONCE ONE Administration Medical Decision Narrative: In summary, this patient is a 53-year-old male presenting to the Emergency Department for evaluation of left buttock pain radiating down his left leg. Differential diagnoses considered include but are not limited to sciatica, disc herniation, peripheral neuropathy, osteoarthritis, musculoskeletal strain/sprain. Ruling out the most morbid conditions drove assessment. It should be noted patient's history includes obesity, hypertension, hyp erlipidemia, type 2 diabetes which may or may not be at goal therapy. This complicates all aspects of care by increasing patient's risk for morbidity. I reviewed patient's past medical records and noted previous evaluation by his primary care provider prescriptions for Medrol Dosepak and Flexeril. On exam, the patient is sitting upright in no acute distress. He is neurologically intact with no alarm findings concerning for cauda equina syndrome or spinal cord compression. 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 I do feel he would benefit from outpatient MRI potentially to evaluate. Patient was given topical Lidoderm patch, IM Toradol, oral Valium and Tylenol for symptomatic improvement. On reassessment, the patient states that he is feeling better and feels comfortable going home with prescriptions to treat his symptoms. He was given prescriptions for Valium for a few days, Toradol, Lidoderm patches. He was given instructions for supportive management and strict return precautions Critical Care Critical Care Time Critical Care Time: No
[2024-06-07] MEDS: LIDOCAINE 5% TRANSDERMAL PATCH 1 EACH TP (12:18)
[2024-06-07] MEDS: KETOROLAC 30MG/ML VIAL 30 MG IM (12:18)
[2024-06-07] MEDS: diazePAM 5MG TABLET 5 MG PO (12:18)
[2024-06-07] MEDS: ACETAMINOPHEN 500MG TAB 1000 MG PO (12:18)
[2024-06-07 13:46] VITALS: BP 142/80; PULSE 63; RESP 18; TEMP 36.6; O2SAT 99
== END 2024-06-07 13:45 | disposition home or self-care (01) ==
PROVIDERS: Emergency Provider Emergency Medicine; PCP Nurse Practitioner
DX: M54.42 Lumbago with sciatica, left side (principal)
CPT/HCPCS: 96372; 99283; J1885

== ENCOUNTER 2025-03-03 12:24 | Outpatient (CLI) | payer BC, SELFPAY ==
[2025-03-03 19:58] LABS: Albumin Level 4.3 g/dl (3.5-5.0)
[2025-03-03 19:59] LABS: Chloride 104 mmol/L (98-107); Potassium 3.5 mmoL/L (3.5-5.1); Sodium 136 mmol/L (136-145)
[2025-03-03 20:01] LABS: Alanine Aminotransferase 38 U/L (12-78); Anion Gap 10.5 mEq/L (5-15); Aspartate Amino Transferase 30 U/L (17-59); Blood Urea Nitrogen 12 mg/dl (9-20); Carbon Dioxide 25 mmol/L (22.0-30.0); Estimated Glomerular Filt Rate 87 ml/min (>60); GFR (African American) 106 ML/MIN (>60)
[2025-03-03 20:02] LABS: Albumin/Globulin Ratio 1.7 (1.1-1.8); Alkaline Phosphatase 122 U/L (38-126); Bilirubin,Total 1.1 mg/dl (0.2-1.3); Calcium 9.3 mg/dl (8.4-10.2); Chol/HDL Ratio 4.7 (1-3.5); Cholesterol 127 mg/dl (140-200); Globulin 2.5 g/dL (1.3-3.2); Glucose 209 mg/dl (74-100); HDL Cholesterol 27 mg/dl (40-60); Total Protein,Serum 6.8 g/dl (6.3-8.2); Triglycerides 377 mg/dl (30-150); VLDL Cholesterol 75 mg/dL (0-40)
[2025-03-03 20:52] LABS: HIV Combo NEGATIVE (Negative)
[2025-03-03 20:59] LABS: Hepatitis C Ab Qual. W/ RFX NEGATIVE (Negative)
[2025-03-03 21:25] LABS: Creatinine,Urine Random 84 mg/dL (Not Estab.)
[2025-03-03 21:29] LABS: Microalbumin/Creatinine Ratio 41.3
== END 2025-03-03 23:59 | disposition home or self-care (01) ==
LOC: LAB.DROPOF 03-05 12:25
PROVIDERS: PCP Nurse Practitioner; Visit Provider Nurse Practitioner
DX: Z13.0 Encounter for screening for diseases of the blood and blood-forming organs and certain disorders involving the immune mechanism (principal); E11.9 Type 2 diabetes mellitus without complications; I10 Essential (primary) hypertension; E78.5 Hyperlipidemia, unspecified; Z79.84 Long term (current) use of oral hypoglycemic drugs; Z87.891 Personal history of nicotine dependence
CPT/HCPCS: 80053; 80061; 82043; 82570; 86803; 87389

== ENCOUNTER 2025-06-07 08:00 | Outpatient (CLI) | payer BC, SELFPAY ==
[2025-06-07 15:38] LABS: Hematocrit 52.1 % (42.0-52.0); Hemoglobin 16.8 g/dL (14.1-18.0); Immature Granulocytes % 0.4 %; Mean Corpuscular HGB Conc 32.2 g/dL (31.8-35.4); Mean Corpuscular Hemoglobin 28.8 pg (27.0-31.2); Mean Corpuscular Volume 89.2 fl (80-94); Nucleated Red Blood Cells % 0 %; Platelet Count 218 K/mm3 (142-424); Red Blood Count 5.84 M/mm3 (4.60-6.20); Red Cell Distribution Width-SD 47.6 fL; White Blood Count 12.3 K/mm3 (4.8-10.8)
[2025-06-07 16:21] LABS: Hemoglobin A1C 7.1 % (4.0-6.0)
[2025-06-07 16:53] LABS: Chloride 104 mmol/L (98-107); Potassium 3.6 mmoL/L (3.5-5.1)
[2025-06-07 16:56] LABS: Alanine Aminotransferase 28 U/L (12-78); Alkaline Phosphatase 124 U/L (38-126); Aspartate Amino Transferase 27 U/L (17-59); Bilirubin,Total 0.8 mg/dl (0.2-1.3); Blood Urea Nitrogen 12 mg/dl (9-20); Calcium 9.2 mg/dl (8.4-10.2); Cholesterol 140 mg/dl (140-200); Creatinine,Serum 0.70 mg/dl (0.66-1.25); Estimated Glomerular Filt Rate 117 ml/min (>60); GFR (African American) 141 ML/MIN (>60); Glucose 169 mg/dl (74-100); Total Protein,Serum 7.1 g/dl (6.3-8.2)
[2025-06-07 16:57] LABS: HDL Cholesterol 26 mg/dl (40-60)
[2025-06-07 17:11] LABS: Sodium 137 mmol/L (136-145)
[2025-06-07 17:30] LABS: Thyroid Stimulating Hormone 1.58 uIU/mL (0.465-4.68)
[2025-06-07 17:36] LABS: Triglycerides 429 mg/dl (30-150)
[2025-06-07 18:35] LABS: Albumin Level 4.4 g/dl (3.5-5.0); Albumin/Globulin Ratio 1.6 (1.1-1.8); Anion Gap 13.6 mEq/L (5-15); Carbon Dioxide 23 mmol/L (22.0-30.0); Globulin 2.7 g/dL (1.3-3.2)
[2025-06-07 19:09] LABS: 25-OH Vitamin D, Total 31.2 ng/mL (30-100)
[2025-06-07 19:41] LABS: Vitamin B12 368 pg/mL (239-931)
[2025-06-08 05:54] LABS: Hepatitis B Surface Antigen Negative (Negative)
--- OUTSIDE RECORDS SUMMARY | 2025-06-09 10:38 | XMS_ITS | Clinical Summary ---
Author Organization [facility] Address [facility] [place] [address] Phone Care Team Providers Care Credit Balance Specialist Name Role Phone Bert Novak MD [phone] Conditions or Problems No information available. Medications No information available. Medications Administered No information available. Allergies, Adverse Reactions, Alerts No information available. Results No information available. Plan of Care No information available. Procedures No information available. Vital Signs No information available. Immunizations No information available. Advance Directives No information available.
--- OUTSIDE RECORDS SUMMARY | 2025-06-09 10:39 | XMS_ITS | Clinical Summary ---
Author Organization Healthcare Address [address] [place] [address] Care Team Providers Care Rig Manager Name Role Phone Pcp, No Primary Care Provider Unavailabl e Allergies No known active allergies Medications amLODIPine (Norvasc) 5 MG tablet Take 1 tablet (5 mg total) by mouth 1 (one) time each day. 30 tablet 3 Active valsartan (Diovan) 40 MG tablet Take 1 tablet (40 mg total) by mouth 1 (one) time each day. 30 tablet 3 Active atorvastatin (Lipitor) 20 MG tablet Take 20 mg by mouth 1 (one) time each day. 2 Active metFORMIN (Glucophage) 1000 MG tablet Take 1,000 mg by mouth 1 (one) time each day. 2 Active oxymetazoline (Afrin) 0.05 % nasal spray Administer 1 spray into each nostril 3 (three) times a day for 8 doses. Do not use for more than 3 days. 30 mL 3 Active valsartan (Diovan) 160 MG tablet Take 1 tablet (160 mg total) by mouth 1 (one) time each day. 30 tablet 1 3 Active amLODIPine (Norvasc) 10 MG tablet Take 1 tablet (10 mg total) by mouth 1 (one) time each day. 30 tablet 1 3 Active hydroCHLOROthia zide (HYDRODiuril) 25 MG tablet Take 1 tablet (25 mg total) by mouth 1 (one) time each day. 30 tablet 1 3 Active Active Problems Problem Noted Date Diagnosed Date Epistaxis 01/09/2023 Hypertensive urgency 01/09/2023 Obesity 01/09/2023 DM (diabetes mellitus) 01/09/2023 HLD (hyperlipidemia) 01/09/2023 Family History Medical History Relation Name Comments Heart disease Father Hyperlipidemia Father Hypertension Father Heart disease Mother Hyperlipidemia Mother Hypertension Mother Relation Name Status Comments Father Mother Social History Tobacco Use Types Packs/Day Years Used Date Smoking Tobacco: Never Assessed Alcohol Use Standard Drinks/Week Comments Not Currently 0 (1 standard drink = 0.6 oz pur e alcohol) Sex and Gender Information Value Date Recorded Sex Assigned at Not on file Legal Sex Male 3:34 PM EDT Gender Identity Not on file Sexual Orientation Not on file Last Filed Vital Signs Vital Sign Reading Time Taken Comments Blood Pressure 121/69 01/11/2023 4:03 PM EDT Pulse 99 01/11/2023 4:03 PM EDT Temperature 36.8 C (98.2 F) 01/11/2023 4:03 PM EDT Respiratory Rate 12 01/11/2023 4:03 PM EDT Oxygen Saturation 96% 01/11/2023 11:30 AM EDT Inhaled Oxygen Concentration - - Weight 116 kg (256 lb 6.3 oz) 01/09/2023 12:57 P M EDT Height 167.6 cm (5' 6 ) 01/09/2023 12:57 PM EDT Body Mass Index 41.38 01/09/2023 12:57 PM EDT Plan of Treatment Health Maintenance Due Date Last Done Comments [facility]-Depression Screening 1968 [facility]-HIV Screening 1968 [facility]-Hepatitis C Screening 1968 [facility]-Infant/Child/Adol SDOH Screenings 1968 [facility]-Obesity Intervention 1974 Diabetes: Dental Exam 1978 [facility]- SDOH Screenings 1986 [facility]-Adult SDOH Screenings 1986 [facility]-Hepatitis B Vaccines (1 of 3 - 19+ 3-dose series) 1987 [facility]-Pneumococcal Vaccine: 50 + Years (1 of 2 - PCV) 1987 CT Colonography 2013 Colonoscopy 2013 FIT-DNA 2013 FIT 2013 FOBT 2013 Sigmoidoscopy 2013 [facility]-Colorectal Cancer Screening 2013 [facility]-Zoster Vaccines (1 of 2) 2018 [facility]-Diabetes: Hemoglobin A1C 07/09/2023 01/09/2023 [id number] Vaccine (1 - season) 2024 [facility]-Influenza Vaccine (#1) 2025 [facility]-DTaP,Tdap,and Td Vaccine s (2 - Td or Tdap) 03/16/2026 03/16/2016, 12/26/1996 HPV Vaccines Aged Out No longer eligi ble based on patient's age to complete this topic [facility]-HIB Vaccines Aged Out No longer e ligible based on patient's age to complete this topic [facility]-Hepatitis A Vaccines Aged Out No longer eligible based on patient's age to complete this topic [facility]-IPV Vaccines Aged Out No longer e ligible based on patient's age to complete this topic [facility]-Rotavirus Vaccines Aged Out No lo nger eligible based on patient's age to complete this topic Procedures Procedure Name Priority Date/Time Associated Diagnosis Comments HEMOGLOBIN A1C Add-On 01/09/2023 8:25 AM EDT from Last 3 Months or Most Recently Relevant to Health Maintenance Results * (ABNORMAL) Hemoglobin A1c (01/09/2023 8:25 AM EDT) Hemoglobin A1c 7.5(H) <5.7 % 01/09/2023 10:11 AM EDT [facility] Blood Venous blood specimen / Unknown Venipuncture / Unknown 01/09/2023 8:25 AM EDT 01/09/2023 8:28 AM EDT Narrative [facility] - 01/09/2023 10:11 AM EDT HA1C Interpretive Data: Diagnosis of Diabetes: Diabetic > or = 6.5% Pre-diabetic 5.7 to 6.4% Non-diabetic < or = 5.6% Glycemic Targets for Type I and Type II Diabetics: Non- Adults <7.0% Adults <6.0% Children and Adolescents <7.5% Source: [place] [employer]. Standards of medical care in diabetes,2017. Diabetes Care.2017:40 (suppl 1):S1-S135. HbA1c assay performed by an ion-exchange chromatography method that is certified traceable to the DCCT. us Randy Howe MD LAB BLOOD ORDERABLES Final Resul t [facility] [address] [place] [address] from Last 3 Months or Most Recently Relevant to Health Maintenance Insurance ANTH Care Teams Rig Manager Relationship Specialty Start Date End Date Pcp, No [address] [place] [address] PCP - General Family Medicine 01/08/23
--- OUTSIDE RECORDS SUMMARY | 2025-06-09 10:39 | XMS_ITS | Clinical Summary ---
Author Organization [facility] Address [address] [place] [phone] Phone Care Team Providers Care Oracle Fusion Developer Name Role Phone Unavailable Primary Care Provider Unavailabl e Allergies No known active allergies Medications UNKNOWN TO PATIENT BP medication - doesn't know name Active ibuprofen (ADVIL;MOTRIN) 600 mg Oral Tablet Take 1 Tab by mouth every 8 hours as needed for Pain for up to 21 doses. 21 Tab 0 6 Active Immunizations Immunization Administration Dates Next Due Tdap 03/16/2016 Surgical History Surgery Date Site/Laterality Comments HERNIA REPAIR Medical History Medical History Date Comments Hypertension Social History Tobacco Use Types Packs/Day Years Used Date Smoking Tobacco: Former Tobacco Cessation:Counseling Given: Not Answered Alcohol Use Standard Drinks/Week Comments No 0 (1 standard drink = 0.6 oz pur e alcohol) Sex and Gender Information Value Date Recorded Sex Assigned at Not on file Legal Sex Male 5:18 PM EDT Gender Identity Not on file Sexual Orientation Not on file Obstetrics History Last Filed Vital Signs Vital Sign Reading Time Taken Comments Blood Pressure 133/84 03/16/2016 1:16 PM EDT Pulse 62 03/16/2016 1:16 PM EDT Temperature - - Respiratory Rate 18 03/16/2016 1:16 PM EDT Oxygen Saturation 99% 03/16/2016 1:16 PM EDT Inhaled Oxygen Concentration - - Weight 104.3 kg (230 lb) 03/16/2016 11:07 AM EDT Height 165.1 cm (5' 5 ) 03/16/2016 11:07 AM EDT Body Mass Index 38.27 03/16/2016 11:07 AM EDT Plan of Treatment Health Maintenance Due Date Last Done Comments Annual Wellness Exam 1971 Hepatitis B Vaccine (1 of 3 - 19+ 3-dose series) 1987 Cologuard 2013 Colon Cancer Screening 2013 Colonoscopy 2013 FIT 2013 Sigmoidoscopy 2013 Virtual Colonography 2013 Pneumococcal Vaccine 50+ (1 of 1 - PCV) 2018 Zoster (1 of 2) 2018 COVID-19 Vaccine (1 - 2023-2 5 season) 2024 Influenza Vaccine (#1) 2025 DTaP/TDaP/Td (2 - Td or Tdap) 03/16/2026, 12/26/1996 Meningococcal B Vaccine Aged Out No l onger eligible based on patient's age to complete this topic Insurance ANTHEM PPO ANTHEM PPO
== END 2025-06-07 23:59 | disposition home or self-care (01) ==
LOC: LAB.DROPOF 06-09 10:23
PROVIDERS: PCP Nurse Practitioner; Visit Provider Nurse Practitioner
DX: E78.5 Hyperlipidemia, unspecified (principal); E11.9 Type 2 diabetes mellitus without complications; I10 Essential (primary) hypertension; E55.9 Vitamin D deficiency, unspecified; Z53.20 Procedure and treatment not carried out because of patient's decision for unspecified reasons; E66.9 Obesity, unspecified; Z12.5 Encounter for screening for malignant neoplasm of prostate; Z11.59 Encounter for screening for other viral diseases
CPT/HCPCS: 80053; 80061; 82043; 82306; 82570; 82607; 83036; 84443; 85025; 87340; G0103

== ENCOUNTER 2025-07-25 03:32 | Emergency (ER) | payer BC, SELFPAY ==
[2025-07-25] VITALS (11 sets, daily range): BP systolic 125–169; BP diastolic 74–109; PULSE 56–73; RESP 12–16; TEMP 36.6–36.8; O2SAT 89–100; BMI 36.0
--- NOTE | 2025-07-25 03:20 | ECG_ITS ---
APPROVED REPORT Exam: Resting ECG HR:56 bpm ECG Measurements Heart Rate 56 AXES WI 198 P 55 QRSd 117 QRS 64 QT 429 T 64 QTc 420 Conclusion SINUS BRADYCARDIA MODERATE INTRAVENTRICULAR CONDUCTION DELAY [110+ ms QRS DURATION] BORDERLINE ECG UNCONFIRMED REPORT Electronically signed by : CARMENCITA ANDERS, 07/25/2025 23:58:00
--- NOTE | 2025-07-25 03:26 | CT_ITS ---
PROCEDURE INFORMATION: Exam: CT Cervical Spine Without Contrast Exam date and time: 07/25/2025 4:19 AM Age: 54 years old Clinical indication: Pain; Numbness and weakness; Other: Left arm; Additional info: Left arm pain, numbness, weakness TECHNIQUE: Imaging protocol: Computed tomography of the cervical spine without contrast. Radiation optimization: All CT scans at this facility use at least one of these dose optimization techniques: automated exposure control; mA and/or kV adjustment per patient size (includes targeted exams where dose is matched to clinical indication); or iterative reconstruction. COMPARISON: [facility] cervical spine wo con 11/03/2018 8:32 PM FINDINGS: Bones/joints: No acute fracture. Normal alignment. C2-C3: Calcification of the posterior longitudinal ligament. No spinal stenosis. C3-C4: Calcification of the posterior longitudinal ligament. No spinal stenosis.. C4-C5: Calcification of the posterior longitudinal ligament. No spinal stenosis.. C5-C6: Prominent disc osteophyte complex, this is most prominent on the left. Moderate to severe left neural foraminal narrowing. Moderate spinal stenosis.. C6-C7: No significant disc bulge or herniation. No severe spinal canal stenosis. No significant neural foraminal narrowing. C7-T1: No significant disc bulge or herniation. No severe spinal canal stenosis. No significant neural foraminal narrowing. Lungs: Lung apices are normal. Soft tissues: Unremarkable. IMPRESSION: 1. Prominent posterior disc osteophyte complex at C5-C6 on the left causing moderate to severe spinal stenosis and neural foraminal stenosis. 2. Diffuse calcifications of the posterior longitudinal ligament in the upper cervical spine.
--- NOTE | 2025-07-25 03:34 | ED_ITS ---
Discharge Plan Disposition Patient Disposition: Xfer Other Prescriptions Prescriptions: No Action (DME) Dexcom G7 Automatic Edger Misc See Rx Instructions .MEDSUPPLY Qty: 1 0RF Rx Instructions: As directed (DME) Dexcom G7 Sensor Device See Rx Instructions .MEDSUPPLY Qty: 1 11RF Rx Instructions: As directed amlodipine 5 mg tablet 5 mg PO DAILY Qty: 90 1RF atorvastatin 20 mg tablet See Rx Instructions .ROUTE .COMPLEX Qty: 90 1RF Dose Instruction: Take 1 Tablet by mouth once daily. Rx Instructions: Take 1 Tablet by mouth once daily. Jardiance 25 mg tablet 25 mg PO DAILY Qty: 90 1RF hydrochlorothiazide 25 mg tablet See Rx Instructions .ROUTE .COMPLEX Qty: 90 1RF Dose Instruction: Take 1 Tablet by mouth once daily. Rx Instructions: Take 1 Tablet by mouth once daily. metformin 500 mg tablet extended release 24 hr See Rx Instructions .ROUTE .COMPLEX Qty: 180 1RF Dose Instruction: Take 2 Tablets by mouth once daily. Rx Instructions: Take 2 Tablets by mouth once daily. valsartan 160 mg tablet See Rx Instructions .ROUTE .COMPLEX Qty: 90 1RF Dose Instruction: TAKE 1 TABLET BY MOUTH ONCE DAILY Rx Instructions: TAKE 1 TABLET BY MOUTH ONCE DAILY sildenafil (pulm.hypertension) 20 mg tablet 40 - 60 mg PO ONCE PRN (Reason: sexual activity) Qty: 30 2RF Rx Instructions: take 30 min to 4 hours prior to sexual activity Referrals Follow up/Referrals: Provider,Referral, MD [Primary Care Provider, Medical] - See instructions Clinical Impressions Clinical Impression: Cervical radiculopathy, Spinal stenosis of cervical region, Neural foraminal stenosis of cervical spine, Left arm weakness Print Language Print Language: Hong Konger Discharge ED Provider: Charan Garcia General Adult HPI General Chief complaint: Extremity Problem,Nontraumatic Stated complaint: Left arm and hand pain Time Seen by Provider: 07/25/25 03:34 Mode of Arrival: EMS Source of Information: Patient and EMS Description of Symptoms (Recalled from ER Triage Doc. by RN): pt presents via ems with c/o pain and tenderness to left wrist that began this AM with no known injuy. Pt reports pain worse with movement in certain ways and with palpation. Pt reports unable to grasp objects, radial pulse present. History of Present Illness HPI narrative: 54-year-old male with history of hypertension, sciatica presents for left upper extremity pain, numbness and weakness over the last day. He reports that he when he woke up this morning it was painful and numb. He did normal activities throughout the day but it has been worsening. He reports that he is unable to make a fist, reports severe pain with movement. Reports generalized weakness without arm. Reports moving his neck sometimes makes the pain better and sometimes worse. Denies any history of trauma. Denies any history of IV drug use. 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 Route 06/07/25 .COMPLEX #90 tabs metformin 500 mg tablet,extended See Rx Instructions . Route 06/07/25 release 24 hr .COMPLEX #180 tabs valsartan 160 mg tablet See Rx Instructions .Route 0 06/07/25 .COMPLEX #90 tabs Allergies Allergy/AdvReac Type Severity Reaction Status Date / Time No Known Allergies Allergy Verified 06/07/25 08:47 [facility] Disclaimer: The information contained in this section may have been updated after the patient was seen, as this information can be updated by other users. Medical History (Updated 07/25/25 @ 06:59 by Charan Garcia MD) Obesity Central stenosis of spinal canal Lumbar degenerative disc disease Acute bilateral low back pain with bilateral sciatica Hematuria Screening for malignant neoplasm of colon declined Has daytime drowsiness Elevated C-reactive protein Vitamin D deficiency Erectile dysfunction Acute pain of left wrist Hyperlipidemia Surgical History History of herniorrhaphy History of cholecystectomy Family History Other No significant family history Social History Smoking Status: Never smoker alcohol intake: never current occupational status: employed Travel in the last 8 weeks?: None housing: house caffeine: Yes Other Medical History Have you received the Flu Vaccine for this season: No Have you received the Pneumonia Vaccine: No ROS Obtained: Yes All systems reviewed & no additional complaints except as documented Physical Exam General General appearance: alert and in no apparent distress Head Head exam: atraumatic and normocephalic Eye Eye exam: Present normal appearance, PERRL and EOMI ENT ENT exam: Present normal oropharynx and normal external ear exam Neck Neck exam: Present normal inspection and full ROM Chest Chest inspection: Present normal inspection and symmetric chest wall rise; Absent tenderness Respiratory Respiratory exam: Present normal lung sounds bilaterally; Absent respiratory distress Cardiovascular Cardiovascular exam: Present regular rate and normal rhythm Abdominal Exam Abdominal exam: Present soft; Absent distention, tenderness or guarding Extremities Exam Extremities exam: Present normal inspection and other (Tenderness palpation over the left shoulder, left forearm, wrist and hand. Pain with active and passive range of motion of the left arm. ); Absent edema or joint swelling Back Exam Back exam: Present normal inspection; Absent tenderness Neurological Exam Neurological exam: Present alert, oriented X3 and motor sensory deficit (Weakness with elbow flexion and extension, weakness with wrist flexion and extension, weakness with early childhood lead teacher strength) Psychiatric Psychiatric exam: Present normal affect and normal mood Skin Skin exam: Present warm, dry and normal color Lymphatic Lymphatic Findings: no adenopathy Medical Decision Making Medical Records Medical records reviewed: Yes I reviewed the patient's medical records. Screening: Per USPSTF and CDC recommendations, given the prevalence of disease in our region, it is our hospital?s policy to screen for HIV and viral Hepatitis for all patients aged 18 and over and those with ongoing risk factors. Chadd Inquiry Pt receiving controlled substance: No Chadd was queried for this patient: No Vital Signs: 07/25/25 03:20 07/25/25 04:01 07/25/25 04:30 Temperature 98 F Temperature Source Oral Pulse Rate 63 Pulse Rate [Radial] 58 L Respiratory Rate 16 12 Blood Pressure 169/107 H 155/109 H Blood Pressure [Right Arm] 147/96 H Blood Pressure Mean 127 Blood Pressure Mean [Right Arm] 113 Blood Pressure Position [Right Arm] Sitting 02 Sat by Pulse Oximetry 100 98 96 Oxygen Delivery Method Room Air 07/25/25 04:32 07/25/25 05:00 07/25/25 05:30 Temperature Temperature Source Pulse Rate 73 69 63 Pulse Rate [Radial] Respiratory Rate 12 Blood Pressure 130/77 141/95 H 147/81 H Blood Pressure [Right Arm] Blood Pressure Mean 101 Blood Pressure Mean [Right Arm] Blood Pressure Position [Right Arm] 02 Sat by Pulse Oximetry 96 91 L 89 L Oxygen Delivery Method 07/25/25 06:00 07/25/25 06:30 Temperature Temperature Source Pulse Rate 65 68 Pulse Rate [Radial] Respiratory Rate Blood Pressure 142/81 H 136/77 Blood Pressure [Right Arm] Blood Pressure Mean Blood Pressure Mean [Right Arm] Blood Pressure Position [Right Arm] 02 Sat by Pulse Oximetry 97 94 L Oxygen Delivery Method Lab Data Lab results reviewed: Yes I reviewed the patient's lab results. Lab Results 07/25/25 03:35: WBC 18.6 H, RBC 5.47, Hgb 16.0, Hct 47.9, MCV 87.6, MCH 29.3, MCHC 33.4, RDW 14.2, Plt Count 201, MPV 10.5 H, Neut % (Auto) 70.5, Lymph % (Auto) 18.7, [place] % (Auto) 6.0, Eos % (Auto) 4.0, Baso % (Auto) 0.4, Neut # (Auto) 13.1 H, Lymph # (Auto) 3.5, [place] # (Auto) 1.1 H, Eos # (Auto) 0.7 H, Baso # (Auto) 0.1, Sodium 138, Potassium 3.5, Chloride 104, Carbon Dioxide 24, Anion Gap 13.5, BUN 14, Creatinine 0.80, Estimated Creat Clear 152, Estimated GFR 100, Est GFR ( Amer) 121, Glucose 196 H, Calcium 8.7, Total Bilirubin 0.9, AST 23, ALT 28, Alkaline Phosphatase 147 H, Total Protein 6.5, Albumin 3.9, Globulin 2.6, Albumin/Globulin Ratio 1.5 07/25/25 03:35 07/25/25 03:35 Orders (Tests/Meds): ED MEDICATIONS Discontinued Medications Generic Name Dose Route Start Last Admin Trade Name Ban PRN Reason Stop Dose Admin Acetaminophen 1,000 mg 07/25/25 03:37 07/25/25 03:41 Acetaminophen 500mg Tab PO 07/25/25 03:38 1,000 mg ONCE ONE Administration Ketorolac Tromethamine 30 mg 07/25/25 03:37 07/25/25 03:41 Ketorolac 30mg/Ml Vial IV 07/25/25 03:38 30 mg ONCE ONE Administration Morphine Sulfate 4 mg 07/25/25 03:37 07/25/25 03:41 Morphine 4mg/Ml Syringe IV 07/25/25 03:38 4 mg ONCE ONE Administration Morphine Sulfate 4 mg 07/25/25 05:23 07/25/25 05:32 Morphine 4mg/Ml Syringe IV 07/25/25 05:24 4 mg ONCE ONE Administration ORDERS Category Date Time Status CT cervical spine wo con Stat Cat Scan 07/25/25 03:26 Completed Shoulder XR left minimum 2 views [XR shoulder LT min 2V Exams 07/25/25 06:39 Taken ] Stat Wrist XR left 2 views [XR wrist LT 2V] Stat Exams 07/25/25 06:39 Taken CBC w/Auto Diff [Complete Blood Count Auto Diff] Stat Lab 07/25/25 03:35 Completed CMP [Comprehensive Metabolic Panel] Stat Lab 07/25/25 03:35 Completed Medical Decision Narrative: 54-year-old male with history of hypertension, diabetes presents for left upper extremity pain, weakness, numbness that started when he woke up this morning and has been worsening. No trauma.. History was obtained via interactive discussion with patient. On arrival, patient is [afebrile, hemodynamically stable, satting appropriately, alert, oriented x4, GCS 15], moving all extremities spontaneously. Full physical exam performed and significant for tenderness and pain to the left shoulder, forearm, wrist and hand. Patient has abnormal sensation in the hand. Patient has weakness with elbow flexion and extension, wrist flexion and extension, finger early childhood lead teacher strength. Strong ulnar and radial pulse. No swelling to suggest DVT. We attempted to place a c-collar in the patient but he reported difficulty breathing and refused it. Differential includes but is not limited to cervical radiculopathy, myelopathy, arterial/venous sufficiency Patient was given Tylenol Toradol morphine for symptomatic management and correction of underlying abnormalities. Workup initiated including basic labs, CT scan of the cervical spine. On re-evaluation, patient required additional morphine for pain control. Laboratory workup independently interpreted by me and significant for leukocytosis with white count of 18, no significant electrolyte derangement. Normal renal function. Imaging independently interpreted by me and significant for Prominent posterior disc osteophyte complex at C5-C6 on the left causing moderate to severe spinal stenosis and neural foraminal stenosis. . See radiology read for full review of final results. Given patient history, exam and workup, patient's presentation most likely represents cervical radiculopathy with left upper extremity weakness and pain, acute in onset. We have placed a call to [facility]. Have accepted the patient for transfer for further assessment. Procedures Risk/Benefits of Procedure(s) Were Explained: Yes Critical Care Critical Care Time Critical Care Time: No
[2025-07-25] MEDS: ACETAMINOPHEN 500MG TAB 1000 MG PO (03:41)
[2025-07-25] MEDS: MORPHINE 4MG/ML SYRINGE 4 MG IV ×2 (03:41→05:32)
[2025-07-25] MEDS: KETOROLAC 30MG/ML VIAL 30 MG IV (03:41)
--- OUTSIDE RECORDS SUMMARY | 2025-07-25 03:41 | XMS_ITS | Clinical Summary ---
Author Organization [facility] Address [address] [place] [id number] Phone Care Team Providers Care Occupational Medicine Specialist Name Role Phone Unavailable Primary Care Provider [...] COVID-19 Vaccine (1 - 2023-2 5 season) 2025 Influenza Vaccine (#1) 2025 DTaP/TDaP/Td (2 - Td or Tdap) 03/16/2026, 12/26/1996 Meningococcal B Vaccine Aged Out No l onger eligible based on patient's age to complete this topic Insurance ANTHEM PPO ANTHEM PPO
--- OUTSIDE RECORDS SUMMARY | 2025-07-25 03:41 | XMS_ITS | Clinical Summary ---
Author Organization Healthcare Address [address] [place] [address] Care Team Providers Care Call Center Representative Name Role Phone Pcp, No Primary Care Provider Unavailabl e Allergies No known active allergies Medications atorvastatin (Lipitor) 20 MG tablet Take 20 [...] [facility]-HIV Screening 1968 [facility]-Hepatitis C Screening 1968 [facility]-/Child/Adol SDOH Screenings 1968 [facility]-Obesity Intervention 1974 Diabetes: [...] 2) 2018 [facility]-Diabetes: Hemoglobin A1C 07/09/2023 01/09/2023 [id number] Vaccine ( - season) 2025 [facility]-Influenza Vaccine (#1) 2025 [facility]-DTaP,Tdap,and Td Vaccine [...] Adults <6.0% Children and Adolescents <7.5% Source: [place] [employer]. Standards of medical care in diabetes,2017. Diabetes Care.2017:40 (suppl 1):S1-S135. HbA1c assay performed by an ion-exchange chromatography method that is certified traceable to the DCCT. us Randy Howe MD LAB BLOOD ORDERABLES Final Resul t [facility] [address] [place] [phone] from Last 3 Months or Most Recently Relevant to Health Maintenance Insurance ANTHEM Care Teams Call Center Representative Relationship Specialty Start Date End Date Pcp, [place] [address] PCP - General Family Medicine 01/08/23
[2025-07-25 04:05] LABS: Hematocrit 47.9 % (42.0-52.0); Hemoglobin 16.0 g/dL (14.1-18.0); Immature Granulocytes % 0.4 %; Mean Corpuscular HGB Conc 33.4 g/dL (31.8-35.4); Mean Corpuscular Hemoglobin 29.3 pg (27.0-31.2); Mean Corpuscular Volume 87.6 fl (80-94); Nucleated Red Blood Cells % 0 %; Platelet Count 201 K/mm3 (142-424); Red Blood Count 5.47 M/mm3 (4.60-6.20); Red Cell Distribution Width-SD 45.6 fL; White Blood Count 18.6 K/mm3 (4.8-10.8)
[2025-07-25 04:11] LABS: Alanine Aminotransferase 28 U/L (12-78); Albumin Level 3.9 g/dl (3.5-5.0); Albumin/Globulin Ratio 1.5 (1.1-1.8); Alkaline Phosphatase 147 U/L (38-126); Anion Gap 13.5 mEq/L (5-15); Aspartate Amino Transferase 23 U/L (17-59); Bilirubin,Total 0.9 mg/dl (0.2-1.3); Blood Urea Nitrogen 14 mg/dl (9-20); Calcium 8.7 mg/dl (8.4-10.2); Carbon Dioxide 24 mmol/L (22.0-30.0); Chloride 104 mmol/L (98-107); Creatinine Clearance Estimated 152 mL/min (50-200); Creatinine,Serum 0.80 mg/dl (0.66-1.25); Estimated Glomerular Filt Rate 100 ml/min (>60); GFR (African American) 121 ML/MIN (>60); Globulin 2.6 g/dL (1.3-3.2); Glucose 196 mg/dl (74-100); Potassium 3.5 mmoL/L (3.5-5.1); Sodium 138 mmol/L (136-145); Total Protein,Serum 6.5 g/dl (6.3-8.2)
--- NOTE | 2025-07-25 06:39 | XR_ITS ---
PROCEDURE INFORMATION: Exam: XR Left Wrist Exam date and time: 07/25/2025 6:40 AM Age: 54 years old Clinical indication: Pain; Wrist; Left; Additional info: Atraumatic wrist pain and weakness TECHNIQUE: Imaging protocol: Radiologic exam of the left wrist. Views: 1 or 2 views. 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 No fracture. No subluxation or dislocation. Soft tissues: Unremarkable. IMPRESSION: No acute findings.
--- NOTE | 2025-07-25 06:39 | XR_ITS ---
PROCEDURE INFORMATION: Exam: XR Left Shoulder Exam date and time: 07/25/2025 6:36 AM Age: 54 years old Clinical indication: Pain; Shoulder; Left; Additional info: Atraumatic shoulder pain and weakness TECHNIQUE: Imaging protocol: Radiologic exam of the left shoulder. Views: 2 or more views. COMPARISON: CT CERVICAL SPINE WO CON 07/25/2025 4:19 AM FINDINGS: Bones/joints: There is a [id number] osteoarthritis of the AC joint with joint hypertrophy. The visible skeletal structures are otherwise unremarkable. Lungs: Visible portions of the lungs are unremarkable. Soft tissues: The soft tissues are unremarkable. IMPRESSION: 1. No acute skeletal pathology. 2. [id number] AC joint osteoarthritis.
--- NOTE | 2025-07-25 06:54 | PC.NURSE ---
Late Entry: 336 after c-collar was placed on patient he began complaining of SOA and refuses to wear c collar at this time. Pt aware of dangers in not wearing collar, still wishes to not wear collar. Neuro status still unchanged from arrival to the ed.
--- NOTE | 2025-07-25 06:57 | PC.NURSE ---
[facility] called and stated that they were in the middle of shift change and stated that as soon as their drXochitl comes on she will have them call back for report.
--- NOTE | 2025-07-25 07:00 | PC.NURSE ---
Called radiology to [facility] to and burn a disc
--- NOTE | 2025-07-25 07:10 | PC.NURSE ---
Patient has been accepted to [facility]. Scans have also been powershared.
== END 2025-07-25 08:00 | disposition other institution (70) ==
PROVIDERS: Emergency Medicine; Emergency Provider Student in an Organized Health Care Education/Training Program
DX: M48.02 Spinal stenosis, cervical region (principal); M54.12 Radiculopathy, cervical region; M79.601 Pain in right arm; R29.898 Other symptoms and signs involving the musculoskeletal system; R53.1 Weakness
CPT/HCPCS: 72125; 73030; 73100; 80053; 85025; 93005; 96374; 96375; 96376; 99285; J1885; J2270